=== PATIENT | male | born 1965 | race Hispanic/Latino ===

== ENCOUNTER 2020-07-18 14:23 | Inpatient (IN) | payer SELFPAY ==
--- NOTE | 2020-07-18 15:43 | Event Note ---
ED Screening Note ED Screening Note: pt presents for n/v that began 5 days ago he states he also has cough, chest pain described as a burning, SOB he states he has noticed swelling in his BLE he denies any fever, diarrhea, sore throat pmhx HTN and ME with stent placement allergy clindamycin, doxycycline, penicillin non smoker no sick contacts, no recent travel, no recent surgery +heart murmur, denies hx of murmur +pitting edema BLE This initial assessment/diagnostic orders/clinical plan/treatment(s) is/are subject to change based on patients health status, clinical progression and re- assessment by fellow clinical providers in the ED. Further treatment and workup at subsequent clinical providers discretion. Patient/guardian urged not to elope from the ED as their condition may be serious if not clinically assessed and managed. Initial orders include: labs, EKG, CXR
[2020-07-18 16:28] LABS: Basophils # (Auto) 0.1 K/mm3 (0.0-0.1); Basophils % (Auto) 1.1 % (0.0-1.8); Eosinophils # (Auto) 0.2 K/mm3 (0.0-0.4); Eosinophils % (Auto) 2.9 % (0.0-4.3); Lymphocytes # (Auto) 0.8 K/mm3 (1.2-5.4); Lymphocytes % (Auto) 14.8 % (13.4-35.0); Mean Corpuscular HGB Conc 29 % (32-34); Mean Corpuscular Volume 77 fl (84-94); Monocytes # (Auto) 0.6 K/mm3 (0.0-0.8); Monocytes % (Auto) 11.3 % (0.0-7.3); Red Blood Count 3.13 M/mm3 (3.65-5.03)
[2020-07-18 16:37] LABS: Hematocrit 24.1 % (35.5-45.6); Hemoglobin 6.9 gm/dl (11.8-15.2); Platelet Count 87 K/mm3 (140-440); Red Cell Distribution Width 22.9 % (13.2-15.2)
--- NOTE | 2020-07-18 16:40 | XRay Report ---
CHEST 2 VIEWS INDICATION / CLINICAL INFORMATION: Chest Pain. COMPARISON: None available. FINDINGS: SUPPORT DEVICES: None. HEART / MEDIASTINUM: No significant abnormality. LUNGS / PLEURA: No significant pulmonary or pleural abnormality. No pneumothorax. ADDITIONAL FINDINGS: No significant additional findings. IMPRESSION: No acute cardiopulmonary abnormality. Signer Name: Jim Pretty MD Signed: 07/18/2020 4:34 PM Workstation Name: [id number]
[2020-07-18 16:52] LABS: Alanine Aminotransferase 18 units/L (7-56); BUN/Creatinine Ratio 10; Blood Urea Nitrogen 9 mg/dL (9-20); Calcium 8.3 mg/dL (8.4-10.2); Hemolysis Index 5
[2020-07-18] MEDS ORDERED: SODIUM CHLORIDE 0.9% 500 ML 500 ML IV ONE (21:52)
[2020-07-18] MEDS ORDERED: ONDANSETRON 4 MG/2 ML INJ IV ONE (21:53)
[2020-07-18] MEDS ORDERED: PANTOPRAZOLE 40 MG INJ IV ONE (21:55)
--- NOTE | 2020-07-18 21:56 | Emergency Department Report ---
HPI - General Chief Complaint: Nausea/Vomiting/Diarrhea Time Seen by Provider: 07/18/20 15:40 - HPI HPI: This is a 55-year-old male presents to the emergency department with complaint of a 4 to 5-day history of a dry cough, midsternal burning in the chest, nausea with vomiting, and intermittent shortness of breath. The burning sensation and shortness of breath worsen with exertion. No known alleviating factors. The patient admits to seeing some blood-tinged emesis at times with his nausea and vomiting. He denies any fever, lower extremity swelling, back pain, headache. He has tried Pepto-Bismol and Pepcid for his symptoms prior to presentation. He denies any tobacco or illicit drug use. He has a past medical history of hypertension, high cholesterol, coronary artery disease with [address] 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 No recent travel or sick contacts at home. ED Past Medical Hx - Past Medical History Previous Medical History?: Yes Hx Hypertension: Yes Hx Heart Attack/AMI: Yes Hx Diabetes: Yes ED Review of Systems ROS: Stated complaint: NAUSEA/VOMITING/CHEST BURNING Other details as noted in HPI Comment: All other systems reviewed and negative Constitutional: denies: chills, fever Eyes: denies: eye pain, vision change ENT: denies: ear pain, throat pain Respiratory: cough, SOB with exertion Cardiovascular: chest pain (Burning sensation). denies: edema Gastrointestinal: abdominal pain, nausea, vomiting, hematemesis Genitourinary: denies: dysuria, discharge Musculoskeletal: denies: back pain, arthralgia Skin: denies: rash, lesions Neurological: denies: headache, weakness Physical Exam - Physical Exam Vital Signs: Vital Signs 07/18/20 14:47 Temperature 98.1 F Pulse Rate 113 H Respiratory 18 Rate Blood Pressure 113/65 [Right] O2 Sat by Pulse 98 Oximetry Physical Exam: GENERAL: The patient is well-developed well-nourished. HENT: Normocephalic. Atraumatic. Patient has moist mucous membranes. EYES: Extraocular motions are intact. Pale conjunctiva. NECK: Supple. Trachea is midline. CHEST/LUNGS: Clear to auscultation. There is tachypnea but no accessory muscle use. HEART/CARDIOVASCULAR: Regular. There is mild tachycardia. There is no murmur. ABDOMEN: Abdomen is soft. There is epigastric and right upper quadrant abdominal tenderness to palpation. No guarding. Patient has normal bowel sounds. There is no abdominal distention. SKIN: Skin is warm and dry. NEURO: The patient is awake, alert, and oriented. The patient is cooperative. The patient has no focal neurologic deficits. Normal speech. MUSCULOSKELETAL: There is no tenderness or deformity. There is no limitation range of motion. ED Course Vital Signs 07/18/20 14:47 Temperature 98.1 F Pulse Rate 113 H Respiratory 18 Rate Blood Pressure 113/65 [Right] O2 Sat by Pulse 98 Oximetry ED Medical Decision Making - Lab Data Result diagrams: 07/18/20 16:16 07/18/20 16:16 - EKG Data -: EKG Interpreted by Me EKG shows normal: sinus rhythm, axis, intervals, QRS complexes, ST-T waves Rate: tachycardia (104 bpm) - EKG Data When compared to previous EKG there are: previous EKG unavailable Interpretation: normal EKG (With mild tachycardia at 104 bpm) - Radiology Data Radiology results: report reviewed, image reviewed interpreted by me: Chest x-ray does not show any acute process. There are no pleural effusions, obvious pneumonia and there is no pneumothorax. No significant cardiomegaly. LIMITED RUQ ABDOMINAL ULTRASOUND INDICATION: Upper abd pain, elevated bilirubin. COMPARISON: No relevant prior imaging study available. FINDINGS: Pancreas: Not well-visualized due to overlying bowel gas.. Abdominal Aorta: No significant abnormality. IVC: No significant abnormality. Liver: The liver measures 11.6 cm in length. Nodular surface contour suggestive of cirrhosis. Portal vein not visualized.. Gallbladder: No significant abnormality. Bile ducts: No significant abnormality. Common bile duct measures 3.8 mm. Right kidney: No significant abnormality visualized.. Free fluid: Small volume. Additional Findings: Small right pleural effusion. IMPRESSION: 1. Nodular surface contour of the liver suggesting cirrhosis with small volume of ascites. 2. Portal vein was not visualized. 3. Small right pleural effusion.. - Medical Decision Making This patient presents to the emergency department with a 4 to 5-day history of some nausea with vomiting, intermittent shortness of breath, cough, and a midsternal burning chest discomfort. On examination the patient has pale conjunctiva and some reproducible epigastric and right upper quadrant abdominal tenderness to palpation. There is some tachypnea but no accessory muscle use. Patient's labs shows anemia with a hemoglobin of 6.9. Thrombocytopenia with a platelet count of 87. Patient has an INR of 1.67 without any history of anticoa gulation. There is an elevated bilirubin level. Chest x-ray does not show any acute process. Abdominal ultrasound shows liver cirrhosis, some mild ascites, and mild right basilar pleural effusion. The patient will receive a unit of packed red blood cells for transfusion. Patient will be admitted to the hospital for further evaluation and treatment was accepted for admission by the hospitalist, Dr. Lua. Critical Care Time: No Critical care attestation.: If time is entered above; I have spent that time in minutes in the direct care of this critically ill patient, excluding procedure time. ED Disposition Clinical Impression: Anemia requiring transfusions, Burning chest pain, Elevated INR, Hype rbilirubinemia Liver cirrhosis Qualifiers: Hepatic cirrhosis type: unspecified hepatic cirrhosis Ascites presence: with ascites Qualified Code(s): K74.60 - Unspecified cirrhosis of liver; R18.8 - Ot her ascites Disposition: OP ADMIT IP TO THIS HOSP Is pt being admited?: Yes Condition: Fair Time of Disposition: 00:09
[2020-07-18 23:21] LABS: INR 1.67 (0.87-1.13)
[2020-07-18 23:22] LABS: Partial Thromboplastin Time 38.3 Sec. (24.2-36.6)
--- NOTE | 2020-07-18 23:45 | Ultrasound Report ---
. LIMITED RUQ ABDOMINAL ULTRASOUND INDICATION: Upper abd pain, elevated bilirubin. COMPARISON: No relevant prior imaging study available. FINDINGS: Pancreas: Not well-visualized due to overlying bowel gas.. Abdominal Aorta: No significant abnormality. IVC: No significant abnormality. Liver: The liver measures 11.6 cm in length. Nodular surface contour suggestive of cirrhosis. Portal vein not visualized.. Gallbladder: No significant abnormality. Bile ducts: No significant abnormality. Common bile duct measures 3.8 mm. Right kidney: No significant abnormality visualized.. Free fluid: Small volume. Additional Findings: Small right pleural effusion. IMPRESSION: 1. Nodular surface contour of the liver suggesting cirrhosis with small volume of ascites. 2. Portal vein was not visualized. 3. Small right pleural effusion.. Signer Name: Usama Chance MD Signed: 07/18/2020 11:40 PM Workstation Name: [id number]
[2020-07-19] MEDS ORDERED: ACETAMINOPHEN 325 MG TAB PO PRN (01:33)
[2020-07-19] MEDS ORDERED: ONDANSETRON 4 MG/2 ML INJ IV PRN (01:33)
[2020-07-19] MEDS ORDERED: DEXTROSE 50% IN WATER (25GM) 50 ML SYRINGE IV PRN ×2 (01:33→01:39)
[2020-07-19] MEDS ORDERED: MORPHINE 2 MG/1 ML INJ IV PRN (01:39)
[2020-07-19] MEDS ORDERED: MAGNESIUM HYDROXIDE (MOM) ORAL LIQD UDC PO PRN (01:39)
--- NOTE | 2020-07-19 01:53 | History and Physical Report ---
History of Present Illness Date of examination: 07/19/20 Date of admission: 07/19/20 00:09 Chief complaint: Cough Shortness of breath History of present illness: Patient is a 55-year-old white male with known history of diabetes mellitus, hypertension, coronary artery disease with NM in the past presenting to the emergency room today complaining of cough, nausea and vomiting and intermittent shortness of breath which has been ongoing for the past 4 to 5 days. Shortness of breath is said to get worse on exertion. Denies any chest pain. Denies any fever or chills, no headache or dizziness. He has had some blood-tinged emesis earlier today. He denies any sick contacts and no recent travel, denies any contact with anyone with COVID-19. Patient had tried some Pepto-Bismol and Pepcid prior to reporting to the emergency room. Work-up in the emergency room today reveals hemoglobin of 6.9 and significant thrombocytopenia of 87, elevated bilirubin and elevated INR. Chest x-ray reveals no acute cardiopulmonary abnormality. Abdominal ultrasound reveals nodular surface contour of the liver suggesting cirrhosis with small volume of ascites. There is also small right pleural effusion. Past History Past Medical History: CAD, diabetes, hypertension, other (Liver cirrhosis) Past Surgical History: No surgical history Social history: no significant social history Family history: no significant family history Medications and Allergies Allergies Allergy/AdvReac Type Severity Reaction Status Date / Time clindamycin Allergy Unknown Verified 07/18/20 14:46 doxycycline [From Vibramycin] Allergy Unknown Verified 07/18/20 14:46 Penicillins Allergy Unknown Verified 07/18/20 14:46 Active Meds: Active Medications Acetaminophen (Acetaminophen 325 Mg Tab) 650 mg PO Q4H PRN PRN Reason: Pain MILD(1-3)/Fever >100.5/SAGASTUME Dextrose (Dextrose 50% In Water (25gm) 50 Ml Syringe) 50 ml IV Q30MIN PRN; Protocol PRN Reason: Hypoglycemia Insulin Human Lispro (Insulin Lispro 100 Unit/Ml) 0 unit SUB-Q ACHS KIRT; Protocol Magnesium Hydroxide (Magnesium Hydroxide (Mom) Oral Liqd Udc) 30 ml PO Q4H PRN PRN Reason: Constipation Morphine Sulfate (Morphine 2 Mg/1 Ml Inj) 2 mg IV Q4H PRN PRN Reason: Pain, Moderate (4-6) Ondansetron HCl (Ondansetron 4 Mg/2 Ml Inj) 4 mg IV Q8H PRN PRN Reason: Nausea And Vomiting Sodium Chloride (Sodium Chloride 0.9% 10 Ml Flush Syringe) 10 ml IV BID KIRT Sodium Chloride (Sodium Chloride 0.9% 10 Ml Flush Syringe) 10 ml IV PRN PRN PRN Reason: LINE FLUSH Review of Systems Constitutional: no fever, no chills Ears, nose, mouth and throat: no nasal congestion, no sore throat Cardiovascular: no chest pain, no palpitations Respiratory: cough, shortness of breath Gastrointestinal: nausea, vomiting, no abdominal pain Genitourinary Male: no dysuria, no hematuria, no nocturia Musculoskeletal: no neck pain, no low back pain Integumentary: no rash, no pruritis Neurological: no headaches, no confusion Psychiatric: no anxiety, no depression Exam - Constitutional Vitals: Temp Pulse Resp BP Pulse Ox 98.6 F 94 H 22 131/67 98 07/19/20 01:30 07/19/20 01:30 07/19/20 01:30 07/19/20 01:30 07/19/20 01:30 General appearance: Present: no acute distress, well-nourished - EENT Eyes: Present: PERRL, EOM intact. Absent: scleral icterus ENT: hearing intact, clear oral mucosa, dentition normal - Neck Neck: Present: supple, normal ROM - Respiratory Respiratory effort: normal Respiratory: bilateral: CTA - Cardiovascular Rhythm: regular Heart Sounds: Present: S1 & S2. Absent: gallop, systolic murmur, diastolic murmur, rub, click - Extremities Extremities: no ischemia, pulses intact, pulses symmetrical, normal temperature, normal color, Full ROM Extremity abnormal: edema (Trace bilateral ankle edema.) Peripheral Pulses: within normal limits - Abdominal General gastrointestinal: Present: soft, non-tender, non-distended, normal bowel sounds. Absent: mass - Integumentary Integumentary: Present: clear, warm, dry. Absent: rash - Musculoskeletal Musculoskeletal: strength equal bilaterally - Psychiatric Psychiatric: appropriate mood/affect, intact judgment & insight, memory intact, cooperative - Neurologic Neurologic: CNII-XII intact, no focal deficits, moves all extremities HEART Score - HEART Score Troponin: Troponin T < 0.010 ng/mL (0.00-0.029) 07/18/20 18:47 Results - Labs CBC & Chem 7: 07/18/20 16:16 07/18/20 16:16 Labs: Abnormal lab results 07/18/20 07/18/20 07/18/20 Range/Units 16:16 16:16 21:58 RBC 3.13 L (3.65-5.03) M/mm3 Hgb 6.9 L (11.8-15.2) gm/dl Hct 24.1 L (35.5-45.6) % MCV 77 L (84-94) fl MCH 22 L (28-32) pg MCHC 29 L (32-34) % RDW 22.9 H (13.2-15.2) % Plt Count 87 L (140-440) K/mm3 [place] % (Auto) 11.3 H (0.0-7.3) % Lymph # (Auto) 0.8 L (1.2-5.4) K/mm3 PT (12.2-14.9) Sec. INR (0.87-1.13) APTT (24.2-36.6) Sec. Chloride 107.9 H (98-107) mmol/L Carbon Dioxide 21 L (22-30) mmol/L Glucose 137 H (75-100) mg/dL Calcium 8.3 L (8.4-10.2) mg/dL Total Bilirubin 2.70 H (0.1-1.2) mg/dL Total Protein 5.6 L (6.3-8.2) g/dL Albumin 3.0 L (3.9-5) g/dL Crossmatch See Detail 07/18/20 Range/Units 23:05 RBC (3.65-5.03) M/mm3 Hgb (11.8-15.2) gm/dl Hct (35.5-45.6) % MCV (84-94) fl MCH (28-32) pg MCHC (32-34) % RDW (13.2-15.2) % Plt Count (140-440) K/mm3 [place] % (Auto) (0.0-7.3) % Lymph # (Auto) (1.2-5.4) K/mm3 PT 19.7 H (12.2-14.9) Sec. INR 1.67 H (0.87-1.13) APTT 38.3 H (24.2-36.6) Sec. Chloride (98-107) mmol/L Carbon Dioxide (22-30) mmol/L Glucose (75-100) mg/dL Calcium (8.4-10.2) mg/dL Total Bilirubin (0.1-1.2) mg/dL Total Protein (6.3-8.2) g/dL Albumin (3.9-5) g/dL Crossmatch Assessment and Plan - Patient Problems (1) Anemia requiring transfusions Current Visit: Yes Status: Acute Plan to address problem: Patient will be transfused with packed red blood cells. Will monitor CBC (2) Hyperbilirubinemia Current Visit: Yes Status: Acute Plan to address problem: Possibly secondary to the liver disease. We will monitor chemistry. (3) Liver cirrhosis Current Visit: Yes Status: Acute Qualifiers: Hepatic cirrhosis type: unspecified hepatic cirrhosis Ascites presence: with ascites Qualified Code(s): K74.60 - Unspecified cirrhosis of liver; R18.8 - Other ascites Plan to address problem: Consult placed to gastroenterology for evaluation. (4) Elevated INR Current Visit: Yes Status: Acute Plan to address problem: Possibly secondary to the liver disease.We will monitor PT/INR. (5) Full code status Current Visit: Yes Status: Acute Plan to address problem: Patient is full code.
[2020-07-19] MEDS: INSULIN LISPRO 100 UNIT/ML SUB-Q SCH ×4 (08:31→22:05)
[2020-07-19] MEDS: PANTOPRAZOLE 40 MG INJ IV SCH ×2 (09:07→22:07)
--- NOTE | 2020-07-19 10:37 | Progress Note ---
Assessment and Plan Assessment and plan: (1) Anemia requiring transfusions Current Visit: Yes Status: Acute Plan to address problem: Transfused 1 unit PRBC Trend hemoglobin Denies any blood in stool GI consulted for possible EGD (2) Hyperbilirubinemia Current Visit: Yes Status: Acute Plan to address problem: Possibly secondary to the liver disease. We will monitor chemistry. (3) Liver cirrhosis GI evaluation Trend AST/ALT bilirubin (4) Elevated INR Current Visit: Yes Status: Acute Plan to address problem: Possibly secondary to the liver disease.We will monitor PT/INR. (5) Full code status Current Visit: Yes Status: Acute Plan to address problem: Patient is full code. History Interval history: Patient seen examined at bedside this morning To see Has no complaints Received 1 unit PRBCs yesterday Repeat hemoglobin today. GI to see Hospitalist Physical - Physical exam Narrative exam: VITAL SIGNS: Reviewed. GENERAL: Awake HEAD: No signs of head trauma. EYES: Pupils are equal. Extraocular motions intact. MOUTH: Oropharynx is normal. NECK: No adenopathy, no JVD. CHEST: Chest with diminished breath sounds bilaterally. No wheezes, rales, or rhonchi. CARDIAC: normal S1 and S2, without murmurs, gallops, or rubs. ABDOMEN: Soft, non tender and non distended. No rebound or guarding, and no masses palpated. Bowel Sounds normal. MUSCULOSKELETAL: No edema NEUROLOGIC EXAM: Alert and oriented x3. No focal neurologic deficits SKIN: No obvious lesions - Constitutional Vitals: Temp Pulse Resp BP Pulse Ox 98.8 F 96 H 20 135/62 99 07/19/20 07:30 07/19/20 07:30 07/19/20 07:30 07/19/20 07:30 07/19/20 07:30 HEART Score - HEART Score Troponin: Troponin T < 0.010 ng/mL (0.00-0.029) 07/18/20 18:47 Results - Labs CBC & Chem 7: 07/18/20 16:16 07/18/20 16:16 Labs: Laboratory Last Values WBC 5.4 K/mm3 (4.5-11.0) 07/18/20 16:16 RBC 3.13 M/mm3 (3.65-5.03) L 07/18/20 16:16 Hgb 6.9 gm/dl (11.8-15.2) L 07/18/20 16:16 Hct 24.1 % (35.5-45.6) L 07/18/20 16:16 MCV 77 fl (84-94) L 07/18/20 16:16 MCH 22 pg (28-32) L 07/18/20 16:16 MCHC 29 % (32-34) L 07/18/20 16:16 RDW 22.9 % (13.2-15.2) H 07/18/20 16:16 Plt Count 87 K/mm3 (140-440) L 07/18/20 16:16 Lymph % (Auto) 14.8 % (13.4-35.0) 07/18/20 16:16 [place] % (Auto) 11.3 % (0.0-7.3) H 07/18/20 16:16 Eos % (Auto) 2.9 % (0.0-4.3) 07/18/20 16:16 Baso % (Auto) 1.1 % (0.0-1.8) 07/18/20 16:16 Lymph # (Auto) 0.8 K/mm3 (1.2-5.4) L 07/18/20 16:16 [place] # (Auto) 0.6 K/mm3 (0.0-0.8) 07/18/20 16:16 Eos # (Auto) 0.2 K/mm3 (0.0-0.4) 07/18/20 16:16 Baso # (Auto) 0.1 K/mm3 (0.0-0.1) 07/18/20 16:16 Seg Neutrophils % 69.9 % (40.0-70.0) 07/18/20 16:16 Seg Neutrophils # 3.8 K/mm3 (1.8-7.7) 07/18/20 16:16 PT 19.7 Sec. (12.2-14.9) H 07/18/20 23:05 INR 1.67 (0.87-1.13) H 07/18/20 23:05 APTT 38.3 Sec. (24.2-36.6) H 07/18/20 23:05 Sodium 139 mmol/L (137-145) 07/18/20 16:16 Potassium 4.0 mmol/L (3.6-5.0) 07/18/20 16:16 Chloride 107.9 mmol/L (98-107) H 07/18/20 16:16 Carbon Dioxide 21 mmol/L (22-30) L 07/18/20 16:16 Anion Gap 14 mmol/L 07/18/20 16:16 BUN 9 mg/dL (9-20) 07/18/20 16:16 Creatinine 0.9 mg/dL (0.8-1.3) 07/18/20 16:16 Estimated GFR > 60 ml/min 07/18/20 16:16 BUN/Creatinine Ratio 10 % 07/18/20 16:16 Glucose 137 mg/dL (75-100) H 07/18/20 16:16 POC Glucose 88 mg/dL (70-105) 07/19/20 07:18 Calcium 8.3 mg/dL (8.4-10.2) L 07/18/20 16:16 Total Bilirubin 2.70 mg/dL (0.1-1.2) H 07/18/20 16:16 AST 34 units/L (5-40) 07/18/20 16:16 ALT 18 units/L (7-56) 07/18/20 16:16 Alkaline Phosphatase 108 units/L (35-129) 07/18/20 16:16 Troponin T < 0.010 ng/mL (0.00-0.029) 07/18/20 18:47 NT-Pro-B Natriuret Pep 256.4 pg/mL (0-900) 07/18/20 16:16 Total Protein 5.6 g/dL (6.3-8.2) L 07/18/20 16:16 Albumin 3.0 g/dL (3.9-5) L 07/18/20 16:16 Albumin/Globulin Ratio 1.2 % 07/18/20 16:16 Lipase 32 units/L (13-60) 07/18/20 16:16 Blood Type O POSITIVE 07/18/20 21:58 Antibody Screen Negative 07/18/20 21:58 Crossmatch See Detail 07/18/20 21:58 Active Medications - Current Medications Current Medications: Generic Name Dose Route Start Last Admin Trade Name Freq PRN Reason Stop Dose Admin Acetaminophen 650 mg 07/19/20 01:33 Acetaminophen 325 Mg Tab PO Q4H PRN Pain MILD(1-3)/Fever >100.5/SAGASTUME Dextrose 50 ml 07/19/20 01:33 Dextrose 50% In Water (25gm) 50 Ml Syringe IV Q30MIN PRN Hypoglycemia Protocol Insulin Human Lispro 0 unit 07/19/20 07:30 07/19/20 08:31 Insulin Lispro 100 Unit/Ml SUB-Q Not Given ACHS KIRT Protocol Magnesium Hydroxide 30 ml 07/19/20 01:39 Magnesium Hydroxide (Mom) Oral Liqd Udc PO Q4H PRN Constipation Morphine Sulfate 2 mg 07/19/20 01:39 Morphine 2 Mg/1 Ml Inj IV Q4H PRN Pain, Moderate (4-6) Ondansetron HCl 4 mg 07/19/20 01:33 Ondansetron 4 Mg/2 Ml Inj IV Q8H PRN Nausea And Vomiting Pantoprazole Sodium 40 mg 07/19/20 10:00 Pantoprazole 40 Mg Inj IV BID KIRT Sodium Chloride 10 ml 07/19/20 10:00 Sodium Chloride 0.9% 10 Ml Flush Syringe IV BID KIRT Sodium Chloride 10 ml 07/19/20 01:33 Sodium Chloride 0.9% 10 Ml Flush Syringe IV PRN PRN LINE FLUSH
[2020-07-19] MEDS ORDERED: SODIUM CHLORIDE 0.9% 1000 ML 1,000 ML IV SCH (12:30)
[2020-07-19] MEDS ORDERED: WATER FOR IRRIG STERILE 1,000 ML BOTTLE ONE (12:59)
[2020-07-19] MEDS ORDERED: WATER FOR IRRIG STERILE 250 ML BOTTLE IR ONE (12:59)
--- NOTE | 2020-07-19 13:08 | Anesthesia Consultation ---
<LUIS MILLS - Last Filed: 07/19/20 13:03> Anesthesia Consult and Med Hx Date of service: 07/19/20 - Airway Anesthetic Teeth Evaluation: Crowns ROM Head & Neck: Adequate Mental/Hyoid Distance: Adequate Mallampati Class: Class II Intubation Access Assessment: Probably Good - Pulmonary Exam CTA: Yes - Pre-Operative Health Status ASA Pre-Surgery Classification: ASA3 Proposed Anesthetic Plan: MAC - Pulmonary Hx Smoking: No Hx Asthma: No SOB: Yes COPD: No Hx Pneumonia: No Hx Sleep Apnea: No - Cardiovascular System Hx Hypertension: Yes Hx Heart Attack/AMI: Yes (2010 07 stent placement) Hx Angina: No Hx Percutaneous Transluminal Coronary Angioplasty (PTCA): No Hx Pacemaker: No Hx Valvular Heart Disease: No Hx Heart Murmur: No Hx Peripheral Vascular Disease: No - Central Nervous System Hx Neuromuscular Disorder: No Hx Seizures: No CVA: No Hx Psychiatric Problems: No - Gastrointestinal Hx Ulcer: No Hx Gastroesophageal Reflux Disease: No - Endocrine Hx Renal Disease: Yes (Hx. of renal calculi) Hx Cirrhosis: Yes (Liver Cirrhosis) Hx Liver Disease: Yes Hx Insulin Dependent Diabetes: No Hx Non-Insulin Dependent Diabetes: No Hx Thyroid Disease: No - Hematic Hx Anemia: Yes - Other Systems Hx Alcohol Use: No Hx Substance Use: No Hx Cancer: No Hx Obesity: Yes (BMI 34.9kg) - Additional Comments Anesthesia Medical History Comments: Patient denied previous anesthesia complications. <LEANNE JI - Last Filed: 07/19/20 14:19> Anesthesia Consult and Med Hx - Pre-Operative Health Status ASA Pre-Surgery Classification: ASA4 - Additional Comments Anesthesia Medical History Comments: PMh CAD s/p PA and stent placement, HTN, DM, cirrhosis complicated by anemia, thrombocytopenia, coagulopathy, and small volume ascites.
--- NOTE | 2020-07-19 13:11 | Anesthesia Day of Surgery ---
Anesthesia Day of Surgery - Day of Surgery Patient Examined: Yes Patient H&P Reviewed: Yes Patient is NPO: Yes Beta Blockers: No Cardiac Clearance: No Pulmonary Clearance: No Magan's Test: N/A
[2020-07-19] MEDS ORDERED: propofoL 200 MG/20 ML VIAL IV ONE (13:35)
[2020-07-19] MEDS ORDERED: ONDANSETRON 4 MG/2 ML INJ ONE (13:35)
[2020-07-19] MEDS ORDERED: LIDOCAINE MPF (2%) 20 MG/1 ML VIAL 5 ML ONE (13:35)
[2020-07-19] MEDS ORDERED: fentaNYL 100 MCG/2 ML INJ ONE (13:35)
--- NOTE | 2020-07-19 14:17 | Post Operative Note ---
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
--- NOTE | 2020-07-19 14:20 | Post Anesthesia Evaluation ---
- Post Anesthesia Evaluation Patient Participated: Yes Airway Patent: Yes Stable Respiratory Function: Yes Nausea/Vomiting: No Temp > 96.8F: Yes Pain Manageable: Yes Adequeate Hydration: Yes Anesthesia Complications: No
--- NOTE | 2020-07-19 14:36 | Operative Report ---
INDICATIONS: 1. Anemia. 2. Gastrointestinal bleed. MEDICATIONS: Propofol per PROCUREMENT AGENT. COMPLICATIONS: None. DESCRIPTION OF PROCEDURE: The patient brought to procedure suite. The patient had the procedure discussed with him at length. All risks, complications, and benefits discussed after which the patient signed for the procedure performed. The patient was placed in left lateral decubitus position. Mouth block was placed in the patient's oral cavity. After adequate sedation medication as above, endoscope placed in mouth and brought to level of the second portion of duodenum. Retroflexion view performed. The patient's vital signs remained stable throughout the procedure. FINDINGS: There were 2 columns of grade I-II varices without bleeding stigmata noted mid to distal esophagus. Given no stigmata, no interventions were performed. There was a small hiatal hernia at GE junction at 40 cm from the gums. Esophagus otherwise appeared to be normal. There is moderate antral gastritis, biopsies performed. The stomach otherwise appeared to be normal. Duodenum appeared to be normal. Retroflexion view performed in the stomach showed no other pathology other than noted above. The patient tolerated the procedure well. No complications during the procedure. IMPRESSION: 1. 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 2. Hiatal hernia. 3. [id number]-[id number] gastritis, but formed. 4. Otherwise, normal EGD. RECOMMENDATIONS: 1. Follow up biopsy results. 2. If H. pylori positive, we will treat. 3. We will start low dose beta arti. 4. Follow hematocrit and transfuse as needed. 5. Await acute hepatitis panel. 6. If stable in a.m., we can consider discharge, will follow up as an outpatient. 7. We will follow. JOB# [id number] CAB/NTS
[2020-07-19 17:01] LABS: Hematocrit 22.2 % (35.5-45.6)
--- NOTE | 2020-07-19 17:15 | Consultation ---
REFERRING PHYSICIAN: Spencer Arthur MD INDICATION: 1. Liver disease. 2. Anemia. 3. Gastrointestinal bleed. HISTORY OF PRESENT ILLNESS: The patient is a 55-year-old white male with history of diabetes, hypertension, coronary artery disease, status post CO in the past. The patient presented with cough, with nausea, vomiting, and intermittent shortness of breath for the last 4-5 days. The patient also had noted some blood-tinged hematemesis earlier today. Denies any melena. The patient does report he has been taking some Pepto-Bismol and Pepcid ____. The patient denies any NSAIDs. The patient subsequently came to Emergency Room, where was noted to be anemic with a hemoglobin of 6.9 and labs concerning for cirrhosis. He is noted to have an increased bilirubin, elevated INR, and a platelet count of 87. The patient was subsequently admitted and GI consulted. He denies any other specific complaints. PAST MEDICAL HISTORY: 1. Diabetes. 2. Hypertension. 3. Coronary artery disease. MEDICATIONS: Reviewed and updated in chart. ALLERGIES: CLINDAMYCIN, DOXYCYCLINE AND PENICILLIN. SOCIAL HISTORY: Denies alcohol or tobacco. FAMILY HISTORY: Negative for colon cancer. REVIEW OF SYSTEMS: GENERAL: Reports some weakness. HEENT: No visual complaints or tinnitus. PULMONARY: No short of breath. No cough. No chest pain. GASTROINTESTINAL: Reports some hematemesis. All points of 13-point review of systems otherwise negative. PHYSICAL EXAMINATION: VITAL SIGNS: Temperature of 98.8, pulse 96, respirations 20, blood pressure 135/60. GENERAL: Fairly nourished male in no acute distress. HEENT: Pupils equal, round and reactive. PULMONARY: Rhonchi. CARDIOVASCULAR: Regular rate and rhythm. Normal S1, S2. ABDOMEN: Palpable soft. SKIN: No obvious rashes. LABORATORY DATA: Pertinent for white count of 5.4, hemoglobin and hematocrit 6.9 and 24.1, platelet count of 87. INR of 1.67 with a PT of 19.7. Chem-7 within normal limits. LFTs within normal limits except for total bilirubin of 2.7. Lipase is normal. Abdominal ultrasound performed on 07/18/2020 showed nodular contour suggestive of cirrhosis with a small level of ascites. ASSESSMENT: A 55-year-old male presents with some general weakness, noted to be anemic with a low platelet count and increased bilirubin. The patient also had an ultrasound showing liver contour suggestive of cirrhosis. There is no history of alcohol reportedly. Management is noted below. PLAN: 1. We will review ultrasound. 2. We will get basic liver workup including hepatitis serologies. 3. Follow hematocrit and transfuse as needed. 4. Plan EGD. 5. Further recommendations based on progress and results of endoscopy. [facility]# [id number] CAB/NTS
[2020-07-19] MEDS ORDERED: guaiFENesin 200 MG TAB PO PRN (21:49)
[2020-07-19] MEDS: PROPRANOLOL 10 MG TAB PO SCH (22:06)
[2020-07-19] MEDS: guaiFENesin 100 MG/5 ML ORAL LIQD PO PRN (22:08)
[2020-07-20] MEDS: guaiFENesin 100 MG/5 ML ORAL LIQD PO PRN ×2 (05:24→22:22)
[2020-07-20 06:01] LABS: Basophils # (Auto) 0.1 K/mm3 (0.0-0.1); Basophils % (Auto) 1.4 % (0.0-1.8); Eosinophils # (Auto) 0.2 K/mm3 (0.0-0.4); Eosinophils % (Auto) 3.3 % (0.0-4.3); Hemoglobin 7.3 gm/dl (11.8-15.2); Lymphocytes % (Auto) 15.4 % (13.4-35.0); Mean Corpuscular HGB Conc 30 % (32-34); Mean Corpuscular Volume 77 fl (84-94); Monocytes # (Auto) 0.9 K/mm3 (0.0-0.8); Monocytes % (Auto) 13.7 % (0.0-7.3); Platelet Count 127 K/mm3 (140-440); Red Blood Count 3.11 M/mm3 (3.65-5.03)
[2020-07-20 06:11] LABS: INR 1.77 (0.87-1.13)
[2020-07-20 06:18] LABS: Alanine Aminotransferase 14 units/L (7-56); Albumin 2.9 g/dL (3.9-5); BUN/Creatinine Ratio 12; Blood Urea Nitrogen 11 mg/dL (9-20); Calcium 7.7 mg/dL (8.4-10.2); Hemolysis Index 12
[2020-07-20] MEDS: PANTOPRAZOLE 40 MG TAB PO SCH ×2 (09:19→18:09)
[2020-07-20] MEDS: PROPRANOLOL 10 MG TAB PO SCH ×2 (09:19→22:22)
[2020-07-20] MEDS: INSULIN LISPRO 100 UNIT/ML SUB-Q SCH ×4 (09:21→22:27)
--- NOTE | 2020-07-20 12:34 | Progress Note ---
Assessment and Plan Assessment and plan: (1) Anemia requiring transfusions Current Visit: Yes Status: Acute Plan to address problem: Transfused 1 unit PRBC on 07/19. Trend hemoglobin for now Denies any blood in stool EGD - +varices but showed no bleeding. (2) Hyperbilirubinemia Current Visit: Yes Status: Acute Plan to address problem: Possibly secondary to the liver disease. Bilirubin trending up GI following (3) Liver cirrhosis Monitor GI bleed (4) Elevated INR Current Visit: Yes Status: Acute Plan to address problem: Secondary to liver disease. INR 1.77 (5) Full code status Current Visit: Yes Status: Acute Plan to address problem: Patient is full code. (6) Disposition Current Visit: Yes Status: Acute Plan to address problem: Home when cleared by GI History Interval history: 07/20. Patient seen examined at bedside this morning. Hb stable 7.3. EGD showed gastritis. On PPI. GI recs appreciated. Hospitalist Physical - Physical exam Narrative exam: VITAL SIGNS: Reviewed. GENERAL: Awake HEAD: No signs of head trauma. EYES: Pupils are equal. Extraocular motions intact. MOUTH: Oropharynx is normal. NECK: No adenopathy, no JVD. CHEST: Chest with diminished breath sounds bilaterally. No wheezes, rales, or rhonchi. CARDIAC: normal S1 and S2, without murmurs, gallops, or rubs. ABDOMEN: Soft, non tender and non distended. No rebound or guarding, and no masses palpated. Bowel Sounds normal. MUSCULOSKELETAL: No edema NEUROLOGIC EXAM: Alert and oriented x3. No focal neurologic deficits SKIN: No obvious lesions - Constitutional Vitals: Temp Pulse Resp BP Pulse Ox 98.1 F 78 18 114/61 94 07/20/20 07:48 07/20/20 07:48 07/20/20 07:48 07/20/20 07:48 07/20/20 07:48 HEART Score - HEART Score Troponin: Troponin T < 0.010 ng/mL (0.00-0.029) 07/18/20 18:47 Results - Labs CBC & Chem 7: 07/21/20 05:31 07/21/20 05:31 Labs: Laboratory Last Values WBC 6.2 K/mm3 (4.5-11.0) 07/20/20 05:35 RBC 3.11 M/mm3 (3.65-5.03) L 07/20/20 05:35 Hgb 7.3 gm/dl (11.8-15.2) L 07/20/20 05:35 Hct 24.0 % (35.5-45.6) L 07/20/20 05:35 MCV 77 fl (84-94) L 07/20/20 05:35 MCH 23 pg (28-32) L 07/20/20 05:35 MCHC 30 % (32-34) L 07/20/20 05:35 RDW 23.0 % (13.2-15.2) H 07/20/20 05:35 Plt Count 127 K/mm3 (140-440) L 07/20/20 05:35 Lymph % (Auto) 15.4 % (13.4-35.0) 07/20/20 05:35 [place] % (Auto) 13.7 % (0.0-7.3) H 07/20/20 05:35 Eos % (Auto) 3.3 % (0.0-4.3) 07/20/20 05:35 Baso % (Auto) 1.4 % (0.0-1.8) 07/20/20 05:35 Lymph # (Auto) 1.0 K/mm3 (1.2-5.4) L 07/20/20 05:35 [place] # (Auto) 0.9 K/mm3 (0.0-0.8) H 07/20/20 05:35 Eos # (Auto) 0.2 K/mm3 (0.0-0.4) 07/20/20 05:35 Baso # (Auto) 0.1 K/mm3 (0.0-0.1) 07/20/20 05:35 Seg Neutrophils % 66.2 % (40.0-70.0) 07/20/20 05:35 Seg Neutrophils # 4.1 K/mm3 (1.8-7.7) 07/20/20 05:35 PT 20.7 Sec. (12.2-14.9) H 07/20/20 05:35 INR 1.77 (0.87-1.13) H 07/20/20 05:35 APTT 38.3 Sec. (24.2-36.6) H 07/18/20 23:05 Sodium 135 mmol/L (137-145) L 07/20/20 05:35 Potassium 4.0 mmol/L (3.6-5.0) 07/20/20 05:35 Chloride 105.7 mmol/L (98-107) 07/20/20 05:35 Carbon Dioxide 24 mmol/L (22-30) 07/20/20 05:35 Anion Gap 9 mmol/L 07/20/20 05:35 BUN 11 mg/dL (9-20) 07/20/20 05:35 Creatinine 0.9 mg/dL (0.8-1.3) 07/20/20 05:35 Estimated GFR > 60 ml/min 07/20/20 05:35 BUN/Creatinine Ratio 12 % 07/20/20 05:35 Glucose 119 mg/dL (75-100) H 07/20/20 05:35 POC Glucose 107 mg/dL (70-105) H 07/20/20 11:31 Calcium 7.7 mg/dL (8.4-10.2) L 07/20/20 05:35 Total Bilirubin 3.80 mg/dL (0.1-1.2) H 07/20/20 05:35 AST 37 units/L (5-40) 07/20/20 05:35 ALT 14 units/L (7-56) 07/20/20 05:35 Alkaline Phosphatase 84 units/L (35-129) 07/20/20 05:35 Troponin T < 0.010 ng/mL (0.00-0.029) 07/18/20 18:47 NT-Pro-B Natriuret Pep 256.4 pg/mL (0-900) 07/18/20 16:16 Total Protein 5.5 g/dL (6.3-8.2) L 07/20/20 05:35 Albumin 2.9 g/dL (3.9-5) L 07/20/20 05:35 Albumin/Globulin Ratio 1.1 % 07/20/20 05:35 Lipase 32 units/L (13-60) 07/18/20 16:16 Blood Type O POSITIVE 07/18/20 21:58 Antibody Screen Negative 07/18/20 21:58 Crossmatch See Detail 07/18/20 21:58 Vera/IV: Voiding Method Toilet Active Medications - Current Medications Current Medications: Generic Name Dose Route Start Last Admin Trade Name Freq PRN Reason Stop Dose Admin Acetaminophen 650 mg 07/19/20 01:33 Acetaminophen 325 Mg Tab PO Q4H PRN Pain MILD(1-3)/Fever >100.5/SAGASTUME Dextrose 50 ml 07/19/20 01:33 Dextrose 50% In Water (25gm) 50 Ml Syringe IV Q30MIN PRN Hypoglycemia Protocol Guaifenesin 200 mg 07/19/20 21:51 07/20/20 05:24 Guaifenesin 100 Mg/5 Ml Oral Liqd PO 200 mg Q6H PRN Administration Cough Insulin Human Lispro 0 unit 07/19/20 07:30 07/20/20 12:15 Insulin Lispro 100 Unit/Ml SUB-Q Not Given ACHS KIRT Protocol Magnesium Hydroxide 30 ml 07/19/20 01:39 Magnesium Hydroxide (Mom) Oral Liqd Udc PO Q4H PRN Constipation Morphine Sulfate 2 mg 07/19/20 01:39 Morphine 2 Mg/1 Ml Inj IV Q4H PRN Pain, Moderate (4-6) Ondansetron HCl 4 mg 07/19/20 01:33 Ondansetron 4 Mg/2 Ml Inj IV Q8H PRN Nausea And Vomiting Pantoprazole Sodium 40 mg 07/20/20 07:30 07/20/20 09:19 Pantoprazole 40 Mg Tab PO 40 mg BIDAC KIRT Administration Propranolol HCl 20 mg 07/19/20 22:00 07/20/20 09:19 Propranolol 10 Mg Tab PO 20 mg Q12HR KIRT Administration Sodium Chloride 10 ml 07/19/20 10:00 07/20/20 09:20 Sodium Chloride 0.9% 10 Ml Flush Syringe IV 10 ml BID KIRT Administration Sodium Chloride 10 ml 07/19/20 01:33 Sodium Chloride 0.9% 10 Ml Flush Syringe IV PRN PRN LINE FLUSH Nutrition/Malnutrition Assess - Dietary Evaluation Nutrition/Malnutrition Findings: Nutrition Notes Start: 07/19/20 11:21 Freq: Status: Active Protocol: Document 07/19/20 11:21 AL (Rec: 07/19/20 11:45 AL [id number]) Co-Sign 07/19/20 11:21 LP Nutrition Notes Need for Assessment generated from: MD Order,Education Initial or Follow up Assessment Current Diagnosis Diabetes,Hypertension Other Pertinent Diagnosis Anemia, Liver Cirrhosis, Hyperbilirubinemia Current Diet NPO Labs/Tests Total Bilirubin 2.7 Pertinent Medications Reviewed Height 5 ft 11 in Weight 113.389 kg [place] Body Weight (kg) 78.18 BMI 34.8 Intake Prior to Admission Poor Weight Status Obese Subjective/Other Information MD consult for diet education. Pt reports normally eating 2 meals and one snack/ day. However, since Friday 07/14, appetite decreased to consuming <50% of meals. During this time, pt relied on crackers and cookies mainly. Pt reports eating out recreationally and drinks a lot of tea. Diet education provided on general healthy diet tips, hyperbilirubinemia, and importance of drinking water. Last meal reported was on Friday night. Percent of energy/protein needs met: 0/0 Burn Absent Trauma Absent GI Symptoms Vomiting Current % PO Negligible Minimum of two criteria No Energy Intake (severe) < or equal to 50% Estimated Energy Requirement > or equal to 5 days #2 Nutrition Diagnosis Food and nutrition-related knowledge deficit Etiology liver cirrhosis, hyperbilirubinemia, HTN, DM As Evidenced by Signs and Symptoms pt unaware how nutrition related to current disease state. #1 Nutrition Diagnosis Inadequate energy intake Etiology appetite loss As Evidenced by Signs and Symptoms Pt's last meal was on Friday and has consumed <50% of energy needs since Friday 07/14 . Is patient on ventilator? No Is Patient Ambulatory and/or Out of Bed Yes REE-([facility]-ambulatory/OOB) [ 2575.326 [id number]] Kcal/Kg value to use for calculation 18 Approximate Energy Requirements Using 2041 kcal/Kg Calculation Used for Recommendations Kcal/kg Additional Notes Protein: 96-115 g (1-1.2 AdBW 96 kg) Fluid: 1 ml/kcal Nutrition Intervention Change Diet Order: Advance to Cardiac diet when medically feasible Teaching Recipient Patient Learning Readiness Good Teaching Methods Discussion,Handout Education Handouts Provided General Healthful Nutrition Therapy Barriers to Learning No Barriers RD phone number provided Yes Patient aware of follow up options Yes Goal #1 Advance diet when medically feasible Anticipated Discharge Needs: Cardiac/Consistent Carb diet Follow-Up By: 07/21/20 Additional Comments FU for diet advancement, appetite, and intakes
--- NOTE | 2020-07-20 13:54 | Post Anesthesia Evaluation ---
- Post Anesthesia Evaluation Patient Participated: Yes Airway Patent: Yes Stable Respiratory Function: Yes Nausea/Vomiting: No Temp > 96.8F: Yes Pain Manageable: Yes Adequeate Hydration: Yes Anesthesia Complications: No Block Receding Appropriately: Not Applicable Patient on Ventilator: No
--- NOTE | 2020-07-20 16:34 | Gastroenterology Progress Note ---
Assessment and Plan 1. GI: pt w/ anemia with Grade I-II varices on egd - stable overnight without complaints - follow h/, transfuse as needed - PPI qd - diet as tolerated - ok to dc in am from GI standpoint if stable Subjective Date of service: 07/20/20 Interval history: - no GI complaints overnight. Wants to go home Objective - Constitutional Vitals: Temp Pulse Resp BP Pulse Ox 98.5 F 70 20 130/68 96 07/20/20 13:00 07/20/20 13:00 07/20/20 13:00 07/20/20 13:00 07/20/20 13:00 General appearance: no acute distress - EENT Eyes: PERRL - Respiratory Respiratory: bilateral: CTA - Cardiovascular Rhythm: regular Heart Sounds: Present: S1 & S2 - Gastrointestinal General gastrointestinal: Present: soft, non-tender, non-distended - Labs CBC & Chem 7: 07/20/20 05:35 07/20/20 05:35 Labs: Laboratory Results - last 24 hr 07/19/20 07/19/20 07/19/20 15:58 16:37 21:03 WBC RBC Hgb 7.0 L Hct 22.2 L MCV MCH MCHC RDW Plt Count Lymph % (Auto) [place] % (Auto) Eos % (Auto) Baso % (Auto) Lymph # (Auto) [place] # (Auto) Eos # (Auto) Baso # (Auto) Seg Neutrophils % Seg Neutrophils # PT INR Sodium Potassium Chloride Carbon Dioxide Anion Gap BUN Creatinine Estimated GFR BUN/Creatinine Ratio Glucose POC Glucose 81 114 H Calcium Total Bilirubin AST ALT Alkaline Phosphatase Total Protein Albumin Albumin/Globulin Ratio 07/20/20 07/20/20 07/20/20 05:35 05:35 05:35 WBC 6.2 RBC 3.11 L Hgb 7.3 L Hct 24.0 L MCV 77 L MCH 23 L MCHC 30 L RDW 23.0 H Plt Count 127 L Lymph % (Auto) 15.4 [place] % (Auto) 13.7 H Eos % (Auto) 3.3 Baso % (Auto) 1.4 Lymph # (Auto) 1.0 L [place] # (Auto) 0.9 H Eos # (Auto) 0.2 Baso # (Auto) 0.1 Seg Neutrophils % 66.2 Seg Neutrophils # 4.1 PT 20.7 H INR 1.77 H Sodium 135 L Potassium 4.0 Chloride 105.7 Carbon Dioxide 24 Anion Gap 9 BUN 11 Creatinine 0.9 Estimated GFR > 60 BUN/Creatinine Ratio 12 Glucose 119 H POC Glucose Calcium 7.7 L Total Bilirubin 3.80 H AST 37 ALT 14 Alkaline Phosphatase 84 Total Protein 5.5 L Albumin 2.9 L Albumin/Globulin Ratio 1.1 07/20/20 07/20/20 07:48 11:31 WBC RBC Hgb Hct MCV MCH MCHC RDW Plt Count Lymph % (Auto) [place] % (Auto) Eos % (Auto) Baso % (Auto) Lymph # (Auto) [place] # (Auto) Eos # (Auto) Baso # (Auto) Seg Neutrophils % Seg Neutrophils # PT INR Sodium Potassium Chloride Carbon Dioxide Anion Gap BUN Creatinine Estimated GFR BUN/Creatinine Ratio Glucose POC Glucose 103 107 H Calcium Total Bilirubin AST ALT Alkaline Phosphatase Total Protein Albumin Albumin/Globulin Ratio
[2020-07-21 06:02] LABS: Basophils # (Auto) 0.1 K/mm3 (0.0-0.1); Basophils % (Auto) 1.4 % (0.0-1.8); Eosinophils # (Auto) 0.3 K/mm3 (0.0-0.4); Hematocrit 23.1 % (35.5-45.6); Hemoglobin 7.1 gm/dl (11.8-15.2); Lymphocytes # (Auto) 0.9 K/mm3 (1.2-5.4); Lymphocytes % (Auto) 15.7 % (13.4-35.0); Mean Corpuscular HGB Conc 31 % (32-34); Mean Corpuscular Volume 74 fl (84-94); Monocytes # (Auto) 0.7 K/mm3 (0.0-0.8); Monocytes % (Auto) 13.4 % (0.0-7.3); Platelet Count 137 K/mm3 (140-440); Red Blood Count 3.11 M/mm3 (3.65-5.03)
[2020-07-21 06:04] LABS: Red Cell Distribution Width 23.5 % (13.2-15.2)
[2020-07-21 06:11] LABS: Alanine Aminotransferase 17 units/L (7-56); Albumin 2.7 g/dL (3.9-5); BUN/Creatinine Ratio 13; Blood Urea Nitrogen 12 mg/dL (9-20); Calcium 7.5 mg/dL (8.4-10.2); Hemolysis Index 0
[2020-07-21] MEDS: INSULIN LISPRO 100 UNIT/ML SUB-Q SCH ×3 (07:30→11:39)
[2020-07-21] MEDS: PANTOPRAZOLE 40 MG TAB PO SCH (07:30)
[2020-07-21] MEDS ORDERED: SODIUM CHLORIDE 0.9% 500 ML 500 ML IV NR (08:22)
[2020-07-21] MEDS: PROPRANOLOL 10 MG TAB PO SCH (09:08)
--- NOTE | 2020-07-21 09:09 | Discharge Summary ---
Providers - Providers Date of Admission: 07/20/20 15:20 Date of discharge: 07/21/20 Attending physician: JUDIE LIANG 07/19/20 01:34 Consult to Dietitian/Nutrition [CONS] Routine Physician Instructions: Reason For Exam: Reason for Consult: Diet education 07/19/20 01:44 Consult to Physician [CONS] Routine Comment: Consulting Provider: AMISHA TSAI Physician Instructions: Reason For Exam: Elevated bilirubin,h/lucia cirrhosis,?hematemesis Primary care physician: CLINICAL PSYCHOLOGIST Hospitalization Reason for admission: GI bleed, varices Condition: Fair Hospital course: Patient is a 55-year-old white male with known history of diabetes mellitus, hypertension, coronary artery disease with MT in the past who presented to the emergency room complaining of cough, nausea and vomiting and intermittent shortness of breath which has been ongoing for the 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 Chest x-ray reveals no acute cardiopulmonary abnormality. Abdominal ultrasound reveals nodular surface contour of the liver suggesting cirrhosis with small volume of ascites. The patient was admitted with diagnosis of GI bleed, liver cirrhosis, coagulopathy/elevated INR, hyperbilirubinemia and anemia requiring blood transfusion. The patient was seen by GI in consultation and underwent EGD which revealed Grade I-II varices w/o bleeding stigmata, no banding performed. Also gastritis with biopsies pending. GI felt that the GI bleed was secondary to the above findings and diet was advanced which was tolerated. Recommendations were for PPI daily. Patient received PRBCs and H&H stable. Dedicated discharge time 35 minutes Disposition: - TO HOME OR SELFCARE Time spent for discharge: 35 - Discharge Diagnoses (1) Varices of esophagus determined by endoscopy Status: Acute (2) GI bleed Status: Acute (3) Anemia requiring transfusions Status: Acute (4) Elevated INR Status: Acute (5) Hyperbilirubinemia Status: Acute (6) Liver cirrhosis Status: Acute Qualifiers: Hepatic cirrhosis type: unspecified hepatic cirrhosis Ascites presence: with ascites Qualified Code(s): K74.60 - Unspecified cirrhosis of liver; R18.8 - Other ascites Core Measure Documentation - Palliative Care Palliative Care/ Comfort Measures: Not Applicable - Core Measures Any of the following diagnoses?: none Exam - Constitutional Vitals: Temp Pulse Resp BP Pulse Ox 98.1 F 78 16 109/51 95 07/21/20 07:56 07/21/20 07:56 07/21/20 07:56 07/21/20 07:56 07/21/20 07:56 General appearance: Present: no acute distress, well-nourished - EENT Eyes: Present: PERRL ENT: hearing intact, clear oral mucosa - Neck Neck: Present: supple, normal ROM - Respiratory Respiratory effort: normal Respiratory: bilateral: CTA - Cardiovascular Heart Sounds: Present: S1 & S2. Absent: rub, click - Extremities Extremities: pulses symmetrical, No edema Peripheral Pulses: within normal limits - Abdominal General gastrointestinal: Present: soft, non-tender, non-distended, normal bowel sounds Male genitourinary: Present: normal - Integumentary Integumentary: Present: clear, warm, dry - Musculoskeletal Musculoskeletal: gait normal, strength equal bilaterally - Psychiatric Psychiatric: appropriate mood/affect, intact judgment & insight - Neurologic Neurologic: CNII-XII intact, moves all extremities Plan Activity: advance as tolerated Weight Bearing Status: Weight Bear as Tolerated Diet: regular Follow up with: PRIMARY CAREMD [Primary Care Provider] - 7 Days ALIZA PLATA MD [Staff Physician] - 7 Days Prescriptions: propranoloL [Inderal] 20 mg PO Q12HR #60 tablet Pantoprazole [Protonix TAB] 40 mg PO BIDAC #60 tablet
--- NOTE | 2020-07-21 14:16 | Gastroenterology Progress Note ---
Assessment and Plan 1. GI: pt w/ anemia with Grade I-II varices on egd - stable overnight without complaints - follow h/, transfuse as needed - PPI qd - diet as tolerated - ok to dc, will sign off Subjective Date of service: 07/21/20 Interval history: - no GI complaints overnight Objective - Constitutional Vitals: Temp Pulse Resp BP Pulse Ox 98.2 F 81 18 120/61 99 07/21/20 13:25 07/21/20 13:25 07/21/20 13:25 07/21/20 13:25 07/21/20 13:25 General appearance: no acute distress - EENT Eyes: PERRL - Respiratory Respiratory: bilateral: CTA - Cardiovascular Rhythm: regular Heart Sounds: Present: S1 & S2 - Gastrointestinal General gastrointestinal: Present: soft, non-tender, non-distended - Labs CBC & Chem 7: 07/21/20 05:31 07/21/20 05:31 Labs: Laboratory Results - last 24 hr 07/18/20 07/20/20 07/20/20 21:58 16:55 21:43 WBC RBC Hgb Hct MCV MCH MCHC RDW Plt Count Lymph % (Auto) [place] % (Auto) Eos % (Auto) Baso % (Auto) Lymph # (Auto) [place] # (Auto) Eos # (Auto) Baso # (Auto) Seg Neutrophils % Seg Neutrophils # Sodium Potassium Chloride Carbon Dioxide Anion Gap BUN Creatinine Estimated GFR BUN/Creatinine Ratio Glucose POC Glucose 101 97 Calcium Total Bilirubin AST ALT Alkaline Phosphatase Total Protein Albumin Albumin/Globulin Ratio Blood Type O POSITIVE Antibody Screen Negative Crossmatch See Detail 07/21/20 07/21/20 07/21/20 05:31 05:31 07:46 WBC 5.4 RBC 3.11 L Hgb 7.1 L Hct 23.1 L MCV 74 L MCH 23 L MCHC 31 L RDW 23.5 H Plt Count 137 L Lymph % (Auto) 15.7 [place] % (Auto) 13.4 H Eos % (Auto) 6.0 H Baso % (Auto) 1.4 Lymph # (Auto) 0.9 L [place] # (Auto) 0.7 Eos # (Auto) 0.3 Baso # (Auto) 0.1 Seg Neutrophils % 63.5 Seg Neutrophils # 3.4 Sodium 136 L Potassium 3.7 Chloride 105.9 Carbon Dioxide 23 Anion Gap 11 BUN 12 Creatinine 0.9 Estimated GFR > 60 BUN/Creatinine Ratio 13 Glucose 105 H POC Glucose 95 Calcium 7.5 L Total Bilirubin 3.20 H AST 42 H ALT 17 Alkaline Phosphatase 77 Total Protein 5.2 L Albumin 2.7 L Albumin/Globulin Ratio 1.1 Blood Type Antibody Screen Crossmatch 07/21/20 12:05 WBC RBC Hgb Hct MCV MCH MCHC RDW Plt Count Lymph % (Auto) [place] % (Auto) Eos % (Auto) Baso % (Auto) Lymph # (Auto) [place] # (Auto) Eos # (Auto) Baso # (Auto) Seg Neutrophils % Seg Neutrophils # Sodium Potassium Chloride Carbon Dioxide Anion Gap BUN Creatinine Estimated GFR BUN/Creatinine Ratio Glucose POC Glucose 129 H Calcium Total Bilirubin AST ALT Alkaline Phosphatase Total Protein Albumin Albumin/Globulin Ratio Blood Type Antibody Screen Crossmatch
[2020-07-21 15:09] VITALS: BP 118/61
== END 2020-07-21 16:56 | disposition home or self-care (01) | DRG 369 ==
LOC: ED 14:23 → 3B-SURG 07-19 00:09 → OBSVTOIN 07-20 15:20
PROVIDERS: ADMIT Internal Medicine Geriatric Medicine; ATTEND Hospitalist
PROC: 30233N1 Transfusion of Nonautologous Red Blood Cells into Peripheral Vein, Percutaneous Approach (ICD-10-PCS; 2020-07-18)
PROC: 0DB78ZX Excision of Stomach, Pylorus, Via Natural or Artificial Opening Endoscopic, Diagnostic (ICD-10-PCS; principal; 2020-07-19)
DX: I85.01 Esophageal varices with bleeding (principal); R18.8 Other ascites; D64.9 Anemia, unspecified; K29.71 Gastritis, unspecified, with bleeding; E80.6 Other disorders of bilirubin metabolism; K74.60 Unspecified cirrhosis of liver; R79.1 Abnormal coagulation profile; I10 Essential (primary) hypertension; E11.9 Type 2 diabetes mellitus without complications; I25.10 Atherosclerotic heart disease of native coronary artery without angina pectoris; Z79.899 Other long term (current) drug therapy; Z79.4 Long term (current) use of insulin
CPT/HCPCS: 36415; 36430; 71046; 76705; 80053; 82962; 83690; 83880; 84484; 85014; 85018; 85025; 85610; 85730; 86850; 86900; 86901; 86920; 88305; 88342; 93005; 96374; 96375; G0378; C9113; J2405; J2704; J3010; J7030; J7040; P9016

== ENCOUNTER 2020-12-08 14:24 | Emergency (ER) | payer OTHER ==
[2020-12-08 14:34] VITALS: BP 116/65
--- NOTE | 2020-12-08 15:11 | XRay Report ---
CHEST 2 VIEWS INDICATION / CLINICAL INFORMATION: chest pain. COMPARISON: None available. FINDINGS: SUPPORT DEVICES: None. HEART / MEDIASTINUM: No significant abnormality. LUNGS / PLEURA: No significant pulmonary or pleural abnormality. No pneumothorax. ADDITIONAL FINDINGS: No significant additional findings. IMPRESSION: 1. No acute findings. Signer Name: Luis Harkins MD Signed: 12/08/2020 3:06 PM Workstation Name: [id number]
[2020-12-08] MEDS ORDERED: oxyCODONE /ACETAMINOPHEN 5-325MG TAB PO ONE (15:19)
[2020-12-08] MEDS ORDERED: IBUPROFEN 800 MG TAB PO ONE (15:19)
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
[2020-12-08 17:14] LABS: Basophils # (Auto) 0.1 K/mm3 (0.0-0.1); Basophils % (Auto) 0.8 % (0.0-1.8); Eosinophils # (Auto) 0.1 K/mm3 (0.0-0.4); Hemoglobin 9.7 gm/dl (11.8-15.2); Lymphocytes # (Auto) 0.7 K/mm3 (1.2-5.4); Mean Corpuscular HGB Conc 31 % (32-34); Mean Corpuscular Volume 81 fl (84-94); Monocytes # (Auto) 0.8 K/mm3 (0.0-0.8); Platelet Count 112 K/mm3 (140-440); Red Blood Count 3.82 M/mm3 (3.65-5.03)
[2020-12-08 17:17] LABS: Red Cell Distribution Width 22.1 % (13.2-15.2)
[2020-12-08 17:37] LABS: Alanine Aminotransferase 15 units/L (7-56); Albumin 3.4 g/dL (3.9-5); Blood Urea Nitrogen 10 mg/dL (9-20); Calcium 8.9 mg/dL (8.4-10.2); Hemolysis Index 6
[2020-12-08 18:03] LABS: BUN/Creatinine Ratio 14
--- NOTE | 2020-12-10 14:23 | Electrocardiograph Report ---
[facility] Test Date: 2020-12-08 Test Time: 16:56:17 Pat Name: STEVEN AVALOS Department: Room: Gender: M Abseiling Instructor: RENY : 1965 Requested By: ZOILA HARMON Order Number: [id number] Reading MD: Janet Florian Measurements Intervals [place] Rate: 115 P: 69 NM: 158 QRS: 30 QRSD: 98 T: 74 QT: 352 QTc: 486 Interpretive Statements Sinus tachycardia No previous ECG available for comparison Electronically Signed On 12-10-2020 14:23:20 EDT by Janet Florian
== END 2020-12-08 19:53 | disposition other institution (70) ==
LOC: ED 14:24
DX: S32.018A Other fracture of first lumbar vertebra, initial encounter for closed fracture (principal); S32.028A Other fracture of second lumbar vertebra, initial encounter for closed fracture; S22.20XA Unspecified fracture of sternum, initial encounter for closed fracture; R07.89 Other chest pain; I10 Essential (primary) hypertension; E11.9 Type 2 diabetes mellitus without complications; Z88.8 Allergy status to other drugs, medicaments and biological substances; Z88.1 Allergy status to other antibiotic agents; Z88.0 Allergy status to penicillin; Z79.899 Other long term (current) drug therapy; V89.2XXA Person injured in unspecified motor-vehicle accident, traffic, initial encounter; Y93.89 Activity, other specified; Y92.488 Other paved roadways as the place of occurrence of the external cause; Y99.8 Other external cause status
CPT/HCPCS: 36415; 71046; 71250; 72125; 72131; 80053; 84484; 85025; 93005; 99285

== ENCOUNTER 2020-12-14 20:30 | Inpatient (IN) | payer OTHER ==
--- NOTE | 2020-12-14 21:26 | Emergency Department Report ---
ED N/V/D HPI - General Chief complaint: Nausea/Vomiting/Diarrhea Stated complaint: N/V LIVER FAILURE Time Seen by Provider: 12/14/20 21:09 Source: EMS Mode of arrival: Stretcher Limitations: Physical Limitation - History of Present Illness Initial comments: 55-year-old male, history of diabetes, hypertension, CAD with stents, kidney stones, liver cirrhosis, gastritis, grade I-II esophageal varices, anemia, presents to ED with nausea vomiting x4 days. Patient states emesis has been nonbloody, nonbilious. He denies any fever or diarrhea. He reports some sharp abdominal pain located just to the right of the umbilicus. Patient denies any sick contacts. He received 4 Zofran en route from EMS. MD complaint: nausea, vomiting, abdominal pain -: days(s) (4) Description of Vomiting: food contents Associated Abdominal Pain: Yes Location: [place] Severity: moderate Quality: sharp Consistency: constant Improves with: none Worsens with: none Associated Symptoms: nausea/vomiting. denies: fever/chills - Related Data Previous Rx's Medication Instructions Recorded Last Taken Type RX: Pantoprazole [Protonix TAB] 40 mg PO BIDAC #60 tablet 07/21/20 Unknown Rx RX: propranoloL [Inderal] 20 mg PO Q12HR #60 tablet 07/21/20 Unknown Rx Allergies Allergy/AdvReac Type Severity Reaction Status Date / Time clindamycin Allergy Unknown Verified 07/18/20 14:46 doxycycline [From Vibramycin] Allergy Unknown Verified 07/18/20 14:46 Penicillins Allergy Unknown Verified 07/18/20 14:46 ED Review of Systems ROS: Stated complaint: N/V LIVER FAILURE Other details as noted in HPI ED Past Medical Hx - Past Medical History Previous Medical History?: Yes Hx Hypertension: Yes Hx Heart Attack/AMI: Yes (2010 3 stent placement) Hx Congestive Heart Failure: No Hx Diabetes: Yes Hx Pulmonary Embolism: No Hx Liver Disease: Yes Hx Renal Disease: Yes (Hx. of renal calculi) Hx Arthritis: No Hx Seizures: No Hx Kidney Stones: No Hx Asthma: No Hx COPD: No Additional medical history: hepatic failure, jaundice - Surgical History Past Surgical History?: Yes Hx Coronary Stent: Yes (3 stent 2010) Hx Open Heart Surgery: No Hx Pacemaker: No Hx Cholecystectomy: No Hx Appendectomy: No - Social History Smoking Status: Never Smoker Substance Use Type: Alcohol - Medications Home Medications: Home Medications Medication Instructions Recorded Confirmed Last Taken Type RX: Pantoprazole [Protonix TAB] 40 mg PO BIDAC #60 tablet 07/21/20 Unknown Rx RX: propranoloL [Inderal] 20 mg PO Q12HR #60 tablet 07/21/20 Unknown Rx ED Physical Exam - General Limitations: Physical Limitation General appearance: alert, in no apparent distress - Head Head exam: Present: atraumatic, normocephalic - Eye Eye exam: Present: normal appearance, EOMI - ENT ENT exam: Present: mucous membranes moist - Neck Neck exam: Present: normal inspection - Respiratory Respiratory exam: Present: normal lung sounds bilaterally. Absent: respiratory distress - Cardiovascular Cardiovascular Exam: Present: regular rate, normal rhythm - GI/Abdominal GI/Abdominal exam: Present: soft, tenderness (periumbilical, RUQ, RLQ tenderness). Absent: distended - Extremities Exam Extremities exam: Present: pedal edema - Neurological Exam Neurological exam: Present: alert. Absent: oriented X3 (oriented to person and place, confused about the year, answers other questions appropriately, but slow w/ responses) - Psychiatric Psychiatric exam: Present: normal affect, normal mood - Skin Skin exam: Present: warm, dry, intact, normal color ED Course Vital Signs 12/14/20 12/14/20 12/14/20 21:37 21:38 22:00 Temperature 100.2 F H Pulse Rate 90 90 Respiratory 19 27 H Rate Blood Pressure 150/74 Blood Pressure 156/79 [Left] O2 Sat by Pulse 100 100 100 Oximetry 12/14/20 12/14/20 12/14/20 22:16 22:30 22:46 Temperature Pulse Rate 93 H 94 H 85 Respiratory 15 14 8 L Rate Blood Pressure 150/74 150/74 150/74 Blood Pressure [Left] O2 Sat by Pulse 100 100 100 Oximetry 12/14/20 12/14/20 12/15/20 23:00 23:58 00:00 Temperature 100.5 F H Pulse Rate 87 97 H 92 H Respiratory 12 19 17 Rate Blood Pressure 150/74 152/76 Blood Pressure 152/76 [Left] O2 Sat by Pulse 100 100 100 Oximetry 12/15/20 12/15/20 12/15/20 00:07 01:07 01:38 Temperature Pulse Rate 101 H Respiratory 19 16 18 Rate Blood Pressure 158/75 Blood Pressure [Left] O2 Sat by Pulse 99 Oximetry 12/15/20 12/15/20 12/15/20 02:00 03:00 04:00 Temperature Pulse Rate 99 H 94 H 88 Respiratory 19 24 21 Rate Blood Pressure 132/63 136/61 136/61 Blood Pressure [Left] O2 Sat by Pulse 99 99 98 Oximetry 12/15/20 12/15/20 12/15/20 05:00 05:59 06:00 Temperature Pulse Rate 90 96 H Respiratory 23 16 16 Rate Blood Pressure 122/57 128/59 Blood Pressure [Left] O2 Sat by Pulse 100 98 Oximetry 12/15/20 12/15/20 12/15/20 06:01 06:59 07:00 Temperature 99 F Pulse Rate 84 Respiratory 18 17 Rate Blood Pressure 130/60 Blood Pressure [Left] O2 Sat by Pulse 99 Oximetry 12/15/20 12/15/20 12/15/20 07:43 09:00 09:44 Temperature Pulse Rate 76 Respiratory 16 10 L Rate Blood Pressure 119/52 Blood Pressure [Left] O2 Sat by Pulse 100 100 Oximetry 12/15/20 12/15/20 12/15/20 10:00 11:00 12:00 Temperature Pulse Rate 89 87 95 H Respiratory 14 16 16 Rate Blood Pressure 130/59 144/73 141/75 Blood Pressure [Left] O2 Sat by Pulse 99 100 100 Oximetry 12/15/20 12/15/20 12/15/20 13:00 14:00 15:00 Temperature Pulse Rate 100 H 89 88 Respiratory 15 15 11 L Rate Blood Pressure 155/70 129/60 126/58 Blood Pressure [Left] O2 Sat by Pulse 99 99 99 Oximetry 12/15/20 12/15/20 12/15/20 16:00 16:40 16:50 Temperature Pulse Rate 86 88 83 Respiratory 10 L 12 13 Rate Blood Pressure 119/59 119/59 119/59 Blood Pressure [Left] O2 Sat by Pulse 100 99 98 Oximetry 12/15/20 12/15/20 12/15/20 17:00 17:10 17:20 Temperature Pulse Rate 85 87 83 Respiratory 12 11 L 12 Rate Blood Pressure 124/69 124/69 124/69 Blood Pressure [Left] O2 Sat by Pulse 100 99 98 Oximetry 07/30/21 07/30/21 07/30/21 17:30 17:40 17:50 Temperature Pulse Rate 85 83 88 Respiratory 11 L 10 L 12 Rate Blood Pressure 124/69 124/69 124/69 Blood Pressure [Left] O2 Sat by Pulse 100 100 99 Oximetry 12/15/20 12/15/20 12/15/20 18:00 18:10 18:20 Temperature Pulse Rate 88 79 83 Respiratory 11 L 11 L 11 L Rate Blood Pressure 145/67 145/67 145/67 Blood Pressure [Left] O2 Sat by Pulse 99 100 99 Oximetry 12/15/20 12/15/20 12/15/20 18:30 18:40 18:50 Temperature Pulse Rate 84 84 84 Respiratory 13 11 L 12 Rate Blood Pressure 145/67 145/67 145/67 Blood Pressure [Left] O2 Sat by Pulse 99 99 99 Oximetry 12/15/20 12/15/20 12/15/20 19:00 19:10 19:20 Temperature Pulse Rate 82 84 86 Respiratory 13 13 13 Rate Blood Pressure 121/61 121/61 121/61 Blood Pressure [Left] O2 Sat by Pulse 100 100 98 Oximetry 12/15/20 12/15/20 12/15/20 19:30 19:40 19:50 Temperature Pulse Rate 84 90 94 H Respiratory 13 16 21 Rate Blood Pressure 121/61 121/61 121/61 Blood Pressure [Left] O2 Sat by Pulse 99 99 99 Oximetry 12/15/20 12/15/20 12/15/20 20:00 20:10 20:20 Temperature Pulse Rate 83 84 88 Respiratory 13 13 14 Rate Blood Pressure 122/69 122/69 122/69 Blood Pressure [Left] O2 Sat by Pulse 99 100 98 Oximetry 12/15/20 12/15/20 12/15/20 20:30 20:40 20:50 Temperature Pulse Rate 83 86 85 Respiratory 10 L 14 13 Rate Blood Pressure 125/64 125/64 125/64 Blood Pressure [Left] O2 Sat by Pulse 99 97 98 Oximetry - Consultations Consultation #1: 12/15/20 00:20 Spoke w/ Dr Cody. Advises to obtain US given hx of cirrhosis. 12/15/20 02:31 Inform , Of ultrasound results. She suggests patient be transferred to a facility that has hepatobiliary support in case complications such as bleeding arise from patient's cirrhosis. If any issues with attempting to transfer the patient she will be okay with patient staying here at our hospital. 12/15/20 02:41 - [facility] only accepting trauma, esposito, and stroke transfers. - I spoke with Dr. Reed, general surgeon at [place]. States he does not feel this patient needs to be transferred. He feels as though this patient can be managed without having hepatobiliary support. He states if an issue arises after surgery, feel free to call back. Also states there are no beds available. ED Medical Decision Making - Lab Data Result diagrams: 12/14/20 21:48 12/14/20 21:47 - Radiology Data Radiology results: report reviewed, image reviewed - Medical Decision Making 55-year-old male, history of liver cirrhosis, presents to ED with abdominal pain, nausea and vomiting. Patient found to have acute cholecystitis. Fever 100.5. WBCs normal. Total bili is elevated. Baseline total bili is around 3, today it is slightly higher than previous visits. Thrombocytopenia present, which patient has had in the past. Patient is somewhat confused at times. Ammonia level was slightly elevated, so lactulose given. Spoke with Dr. Cody, general surgeon, who agrees to see the patient. Patient will be admitted to hospitalist for further management. Critical care attestation.: If time is entered above; I have spent that time in minutes in the direct care of this critically ill patient, excluding procedure time. ED Disposition Clinical Impression: Acute cholecystitis, Liver cirrhosis, Thrombocytopenia, Hyperammonemia Disposition: OP ADMIT IP TO THIS HOSP Is pt being admited?: Yes Condition: Stable
[2020-12-14 22:03] LABS: Basophils # (Auto) 0.1 K/mm3 (0.0-0.1); Basophils % (Auto) 0.6 % (0.0-1.8); Eosinophils # (Auto) 0.1 K/mm3 (0.0-0.4); Eosinophils % (Auto) 0.6 % (0.0-4.3); Hematocrit 29.4 % (35.5-45.6); Hemoglobin 9.2 gm/dl (11.8-15.2); Lymphocytes # (Auto) 0.7 K/mm3 (1.2-5.4); Mean Corpuscular HGB Conc 31 % (32-34); Mean Corpuscular Volume 83 fl (84-94); Monocytes # (Auto) 1.4 K/mm3 (0.0-0.8); Monocytes % (Auto) 14.5 % (0.0-7.3); Platelet Count 78 K/mm3 (140-440); Red Blood Count 3.53 M/mm3 (3.65-5.03); Red Cell Distribution Width 22.1 % (13.2-15.2)
[2020-12-14 22:24] LABS: Alanine Aminotransferase 28 units/L (7-56); Albumin 3.4 g/dL (3.9-5); BUN/Creatinine Ratio 14; Bilirubin,Direct 1.4 mg/dL (0-0.2); Blood Urea Nitrogen 11 mg/dL (9-20); Calcium 8.8 mg/dL (8.4-10.2); Hemolysis Index 4
[2020-12-14] MEDS ORDERED: ONDANSETRON 4 MG/2 ML INJ IV ONE (23:14)
[2020-12-14] MEDS ORDERED: SODIUM CHLORIDE 0.9% 1000 ML 1,000 ML IV ONE (23:14)
--- NOTE | 2020-12-14 23:33 | Cat Scan Report ---
CT ABDOMEN AND PELVIS WITH CONTRAST INDICATION / CLINICAL INFORMATION: Unspecified abdominal pain with nausea and vomiting. TECHNIQUE: Axial CT images were obtained through the abdomen and pelvis after 100 cc Omnipaque [address] scans at this location are performed using CT dose reduction for ALARA by means of automated exposure control. COMPARISON: None available. FINDINGS: LOWER CHEST: Mild bibasilar atelectasis is noted with a trace right pleural effusion. No other signif icant abnormalities. LIVER: Cirrhotic without other significant abnormalities. GALLBLADDER: The gallbladder is markedly distended and contains multiple stones without significant w all thickening. There is mild pericholecystic fat stranding. BILE DUCTS: No significant abnormality. PANCREAS: No significant abnormality. SPLEEN: Mildly enlarged, measuring 13.3 cm in length. No other significant abnormality. ADRENALS: No significant abnormality. RIGHT KIDNEY / URETER: No significant abnormality. LEFT KIDNEY / URETER: No significant abnormality. STOMACH / SMALL BOWEL: No significant abnormality. COLON: There is sigmoid diverticulosis without evidence of diverticulitis. No other significant abnor mality. APPENDIX: No significant abnormality. PERITONEUM: No free fluid. No free air. No fluid collection. LYMPH NODES: No significant adenopathy. AORTA / ARTERIES: There is mild generalized atherosclerosis without other significant abnormalities. IVC / VEINS: No significant abnormality. URINARY BLADDER: No significant abnormality. REPRODUCTIVE ORGANS: No significant abnormality. ADDITIONAL FINDINGS: None. SKELETAL SYSTEM: Mild degenerative changes are seen along the spine and pelvis without other signific ant abnormalities. IMPRESSION: 1. Cholelithiasis with suspected acute cholecystitis. Please correlate with the clinical findings. 2. Additional findings as above. Signer Name: Brayden Giraldo MD Signed: 12/14/2020 11:29 PM Workstation Name: [id number]
[2020-12-15] MEDS ORDERED: IBUPROFEN 800 MG TAB PO ONE (00:02)
[2020-12-15 00:26] LABS: INR 1.5 (0.87-1.13)
[2020-12-15 00:27] LABS: Partial Thromboplastin Time 35.9 Sec. (24.2-36.6)
[2020-12-15] MEDS ORDERED: levoFLOXacin 500 MG TAB PO ONE (01:26)
--- NOTE | 2020-12-15 01:54 | Ultrasound Report ---
ULTRASOUND ABDOMEN, LIMITED (RIGHT UPPER QUADRANT) INDICATION: abd pain, questionable cholecystitis on CT. COMPARISON: CT abdomen and pelvis with contrast from 12/14/2020. FINDINGS: Pancreas: Obscured by bowel gas. Liver: Similarly cirrhotic without acute abnormalities. Gallbladder: Markedly distended, measuring 15.1 cm in length with multiple stones noted along with a moderate amount of sludge. No significant wall thickening or pericholecystic fluid. Sonographic Murp hy's sign: Positive. Bile ducts: The common duct is dilated and measures 9 mm in diameter without visualization of choledo cholithiasis. No intrahepatic biliary ductal dilatation. Free fluid: None. Additional Findings: There is a 6 mm echogenic focus along the right lower renal pole without associa bruce shadowing. No stone of this size is identified in this location on the prior CT. IMPRESSION: 1. Cholelithiasis with sonographic evidence of acute cholecystitis. 2. Nonspecific mild common bile duct dilatation without visualization of choledocholithiasis. 3. Additional findings as above. Signer Name: Brayden Giraldo MD Signed: 12/15/2020 1:50 AM Workstation Name: [id number]
[2020-12-15 02:39] LABS: Bilirubin,Urine NEG (Negative); Blood,Urine NEG (Negative); Color,Urine Amber (Yellow); Protein,Urine <15 mg/dL mg/dL (Negative); WBC,Urine < 1.0 /HPF (0.0-6.0)
[2020-12-15] MEDS ORDERED: LACTULOSE 20 GM/30 ML ORAL LIQD PO ONE ×2 (02:45→04:32)
--- NOTE | 2020-12-15 04:21 | History and Physical Report ---
History of Present Illness Date of examination: 12/15/20 Date of admission: 12/15/20 02:48 Chief complaint: Nausea and vomiting Abdominal pain and diarrhea History of present illness: Disease 80 55-year-old male seen in ED at bedside. Patient said he came due to nausea vomiting and diarrhea. Patient has a history of diabetes, hypertension, CAD with stents, kidney stones, liver cirrhosis, gastritis, grade I-II esophageal varices, anemia, presents to ED with nausea vomiting x4 days. Patient states emesis has been nonbloody, nonbilious. He denies chest pain and fever. But patient reported abdominal pain around the umbilicus. I reviewed medication record and vital signs. Patient has elevated ammonia levelwe will give lactulose, monitor ammonia level. Past History Past Medical History: CAD, diabetes, hypertension Past Surgical History: No surgical history Social history: lives with family, alcohol abuse Family history: no significant family history Medications and Allergies Allergies Allergy/AdvReac Type Severity Reaction Status Date / Time clindamycin Allergy Unknown Verified 07/18/20 14:46 doxycycline [From Vibramycin] Allergy Unknown Verified 07/18/20 14:46 Penicillins Allergy Unknown Verified 07/18/20 14:46 Home Medications Medication Instructions Recorded Confirmed Last Taken Type Pantoprazole [Protonix TAB] 40 mg PO BIDAC #60 tablet 07/21/20 Unknown Rx propranoloL [Inderal] 20 mg PO Q12HR #60 tablet 07/21/20 Unknown Rx Review of Systems Constitutional: fatigue, weakness Ears, nose, mouth and throat: no epistaxis, no bleeding gums Gastrointestinal: abdominal pain, nausea, vomiting, diarrhea Genitourinary Male: other Rectal: no hemorrhoids Musculoskeletal: muscle weakness Integumentary: no rash, no pruritis Neurological: confusion, other (Mildly confused) Psychiatric: anxiety Hematologic/Lymphatic: no easy bruising, no easy bleeding Exam - Constitutional Vitals: Temp Pulse Resp BP Pulse Ox 100.5 F H 88 21 136/61 98 12/14/20 23:58 12/15/20 04:00 12/15/20 04:00 12/15/20 04:00 12/15/20 04:00 General appearance: Present: mild distress, obese - EENT Eyes: Present: PERRL ENT: hearing intact, clear oral mucosa - Neck Neck: Present: supple, normal ROM - Respiratory Respiratory effort: normal Respiratory: bilateral: CTA - Cardiovascular Heart Sounds: Present: S1 & S2. Absent: rub, click - Extremities Extremities: pulses symmetrical, No edema Peripheral Pulses: within normal limits - Abdominal General gastrointestinal: Present: soft, non-tender, non-distended, normal bowel sounds Male genitourinary: Present: normal - Integumentary Integumentary: Present: clear, warm, dry - Musculoskeletal Musculoskeletal: strength equal bilaterally, generalized weakness - Psychiatric Psychiatric: appropriate mood/affect, intact judgment & insight, cooperative - Neurologic Neurologic: CNII-XII intact, moves all extremities - Allied Health Allied health notes reviewed: nursing Results - Labs CBC & Chem 7: 12/14/20 21:48 12/14/20 21:47 Labs: Abnormal lab results 12/14/20 12/14/20 12/14/20 Range/Units 21:47 21:47 21:48 RBC 3.53 L (3.65-5.03) M/mm3 Hgb 9.2 L (11.8-15.2) gm/dl Hct 29.4 L (35.5-45.6) % MCV 83 L (84-94) fl MCH 26 L (28-32) pg MCHC 31 L (32-34) % RDW 22.1 H (13.2-15.2) % Plt Count 78 L (140-440) K/mm3 Lymph % (Auto) 7.0 L (13.4-35.0) % [place] % (Auto) 14.5 H (0.0-7.3) % Lymph # (Auto) 0.7 L (1.2-5.4) K/mm3 [place] # (Auto) 1.4 H (0.0-0.8) K/mm3 Seg Neutrophils % 77.3 H (40.0-70.0) % PT (12.2-14.9) Sec. INR (0.87-1.13) Carbon Dioxide 18 L (22-30) mmol/L Glucose 104 H (75-100) mg/dL Total Bilirubin 4.30 H (0.1-1.2) mg/dL Direct Bilirubin 1.4 H (0-0.2) mg/dL AST 73 H (5-40) units/L Ammonia 91.0 H (25-60) umol/L Total Protein 6.1 L (6.3-8.2) g/dL Albumin 3.4 L (3.9-5) g/dL Ur Specific [place] (1.003-1.030) 12/14/20 12/15/20 Range/Units 23:57 02:26 RBC (3.65-5.03) M/mm3 Hgb (11.8-15.2) gm/dl Hct (35.5-45.6) % MCV (84-94) fl MCH (28-32) pg MCHC (32-34) % RDW (13.2-15.2) % Plt Count (140-440) K/mm3 Lymph % (Auto) (13.4-35.0) % [place] % (Auto) (0.0-7.3) % Lymph # (Auto) (1.2-5.4) K/mm3 [place] # (Auto) (0.0-0.8) K/mm3 Seg Neutrophils % (40.0-70.0) % PT 18.6 H (12.2-14.9) Sec. INR 1.50 H (0.87-1.13) Carbon Dioxide (22-30) mmol/L Glucose (75-100) mg/dL Total Bilirubin (0.1-1.2) mg/dL Direct Bilirubin (0-0.2) mg/dL AST (5-40) units/L Ammonia (25-60) umol/L Total Protein (6.3-8.2) g/dL Albumin (3.9-5) g/dL Ur Specific [place] 1.060 H (1.003-1.030) Assessment and Plan - Patient Problems (1) Acute cholecystitis Current Visit: Yes Status: Acute Plan to address problem: CT of the abdomen and pelvis showed mild to [place] atelectasis with trace of right pleural effusion, trace of sigmoid diverticulosis without evidence of diverticulitis liver cirrhosis and [place] lithiasis with suspected acute cholecystitis General surgeon consultfollow-up with plan of care (2) Hyperammonemia Current Visit: Yes Status: Acute Plan to address problem: Given lactulose Monitor ammonia level (3) Liver cirrhosis Current Visit: Yes Status: Acute Qualifiers: Plan to address problem: Likely secondary to alcohol abuse Supportive care (4) Thrombocytopenia Current Visit: Yes Status: Acute Plan to address problem: Likely secondary to liver failure Monitor platelet and monitor for bleeding (5) Nausea and vomiting Current Visit: Yes Status: Acute Plan to address problem: Continue antiemetic Monitor electrolytes (6) Full code status Current Visit: No Status: Acute Plan to address problem: Patient is full code (7) DVT prophylaxis Current Visit: Yes Status: Acute Plan to address problem: SCD will hold off on anticoagulantpatient platelet is low
[2020-12-15] MEDS ORDERED: METOCLOPRAMIDE 10 MG/2 ML INJ IV PRN (04:34)
[2020-12-15] MEDS ORDERED: ONDANSETRON 4 MG/2 ML INJ IV PRN (04:34)
[2020-12-15] MEDS ORDERED: HYDROcodone/ACETAMINOPHEN 5-325 MG TAB PO PRN (04:34)
[2020-12-15] MEDS ORDERED: MAGNESIUM HYDROXIDE (MOM) ORAL LIQD UDC PO PRN (04:34)
[2020-12-15] MEDS ORDERED: NALOXONE 0.4 MG/1 ML INJ IV PRN (04:34)
[2020-12-15] MEDS ORDERED: oxyCODONE /ACETAMINOPHEN 5-325MG TAB PO PRN (04:34)
[2020-12-15] MEDS ORDERED: ALUM-MAG HYDROXIDE-SIMETHICONE 200-200-20MG/5ML ORAL LIQD 30 ML PO PRN (04:34)
[2020-12-15] MEDS ORDERED: IBUPROFEN 600 MG TAB PO PRN (04:34)
[2020-12-15] MEDS: D5W/0.9% NACL 1,000 ML IV SCH ×2 (05:50→19:47)
[2020-12-15] MEDS ORDERED: PANTOPRAZOLE 40 MG TAB PO SCH (07:30)
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
[2020-12-15] MEDS: PROPRANOLOL 10 MG TAB PO SCH ×2 (11:56→23:34)
[2020-12-15] MEDS: HYDROmorphone 1 MG/1 ML INJ IV PRN ×2 (14:19→19:42)
[2020-12-15] MEDS: metroNIDAZOLE/NS 500 MG/100 ML 500 MG/100 ML BAG IV SCH ×2 (14:20→19:39)
--- NOTE | 2020-12-15 14:27 | Consultation ---
History of Present Illness Consult date: 12/15/20 Consult reason: pre op evaluation History of present illness: The patient is a 55-year-old man admitted to the hospital with 24 hours of nausea and vomiting and abdominal pain, after initial evaluation, he is diagnosed with acute cholecystitis, and is planned for urgent surgery. Cardiac consultation was requested for preoperative assessment. The patient gives a history of coronary artery disease and states that in 2010 he suffered a myocardial infarction, underwent cardiac catheterization with coronary stent placement. He admits to no consistent cardiac follow-up since then. He states his cardiac evaluation at that time was done in this hospital, but in our [facility] system, there are no records for this patient earlier than July 2020. He has no cardiac complaints, no chest pain, unusual shortness of breath, no palpitations, no lower extremity edema. Comorbidities include chronic anemia, with a current hematocrit of 29, and chronic thrombocytopenia, with a current platelet count of 78,000. A 12-lead ECG is pending for cardiac preoperative assessment. Past History Past Medical History: CAD (With stents), diabetes, GERD, hypertension, other (Cirrhosis) Past Surgical History: No surgical history, PTCA Social history: lives with family, alcohol abuse Family history: no significant family history Medications and Allergies Allergies Allergy/AdvReac Type Severity Reaction Status Date / Time clindamycin Allergy Unknown Verified 07/18/20 14:46 doxycycline [From Vibramycin] Allergy Unknown Verified 07/18/20 14:46 Penicillins Allergy Unknown Verified 07/18/20 14:46 Home Medications Medication Instructions Recorded Confirmed Last Taken Type Pantoprazole [Protonix TAB] 40 mg PO BIDAC #60 tablet 07/21/20 Unknown Rx propranoloL [Inderal] 20 mg PO Q12HR #60 tablet 07/21/20 Unknown Rx Active Meds: Active Medications Acetaminophen (Acetaminophen 325 Mg Tab) 650 mg PO Q4H PRN PRN Reason: Pain MILD(1-3)/Fever >100.5/SAGASTUME Al Hydrox/Mg Hydrox/Simethicone (Alum-Mag Hydroxide-Simethicone [phone]/5ml Oral Liqd 30 Ml) 30 ml PO Q4H PRN PRN Reason: Indigestion Hydromorphone HCl (Hydromorphone 1 Mg/1 Ml Inj) 0.5 mg IV Q3H PRN PRN Reason: Pain , Severe (7-10) Last Admin: 07/30/21 14:19 Dose: 0.5 mg Documented by: Dextrose/Sodium Chloride (D5ns) 1,000 mls @ 75 mls/hr IV DIRECT [facility] Last Admin: 12/15/20 05:50 Dose: 75 mls/hr Documented by: Levofloxacin/Dextrose (Levaquin 500mg/100ml) 500 mg in 100 mls @ 100 mls/hr IV Q24H [facility]; Protocol Metronidazole (Flagyl 500 Mg/100 Ml) 500 mg in 100 mls @ 100 mls/hr IV Q8H [facility]; Protocol Last Admin: 12/15/20 14:20 Dose: 100 mls/hr Documented by: Magnesium Hydroxide (Magnesium Hydroxide (Mom) Oral Liqd Udc) 30 ml PO Q4H PRN PRN Reason: Constipation Metoclopramide HCl (Metoclopramide 10 Mg/2 Ml Inj) 10 mg IV Q6H PRN PRN Reason: Nausea And Vomiting Morphine Sulfate (Morphine 2 Mg/1 Ml Inj) 2 mg IV Q4H PRN PRN Reason: Pain, Moderate (4-6) Naloxone HCl (Naloxone 0.4 Mg/1 Ml Inj) 0.1 mg IV Q2MIN PRN PRN Reason: Res Rate </= 8 or 02 SAT < 92% Ondansetron HCl (Ondansetron 4 Mg/2 Ml Inj) 4 mg IV Q8H PRN PRN Reason: Nausea And Vomiting Pantoprazole Sodium (Pantoprazole 40 Mg Inj) 40 mg IV QDAY [facility] Propranolol HCl (Propranolol 10 Mg Tab) 20 mg PO Q12HR [facility] Last Admin: 12/15/20 11:56 Dose: Not Given Documented by: Sodium Chloride (Sodium Chloride 0.9% 10 Ml Flush Syringe) 10 ml IV BID [facility] Last Admin: 12/15/20 14:23 Dose: 10 ml Documented by: Review of Systems Cardiovascular: no chest pain, no orthopnea, no palpitations, no rapid/irregular heart beat, no edema, no syncope, no lightheadedness, no shortness of breath Gastrointestinal: abdominal pain, nausea, vomiting Physical Examination Vital Signs Temp Pulse Resp BP Pulse Ox 100.2 F H 90 19 156/79 100 12/14/20 21:37 12/14/20 21:37 12/14/20 21:37 12/14/20 21:37 12/14/20 21:37 General appearance: no acute distress HEENT: Positive: PERRL Neck: Positive: neck supple Cardiac: Positive: Reg Rate and Rhythm Lungs: Positive: Decreased Breath Sounds Neuro: Positive: Grossly Intact Abdomen: Positive: Soft Male genitourinary: Positive: deferred Skin: Positive: Clear Extremities: Absent: edema Results 12/14/20 21:48 12/14/20 21:47 Cardiac Enzymes 12/14/20 Range/Units 21:47 AST 73 H (5-40) units/L Coagulation 12/14/20 Range/Units 23:57 PT 18.6 H (12.2-14.9) Sec. INR 1.50 H (0.87-1.13) APTT 35.9 (24.2-36.6) Sec. CBC 12/14/20 Range/Units 21:48 WBC 9.6 (4.5-11.0) K/mm3 RBC 3.53 L (3.65-5.03) M/mm3 Hgb 9.2 L (11.8-15.2) gm/dl Hct 29.4 L (35.5-45.6) % Plt Count 78 L (140-440) K/mm3 Lymph # (Auto) 0.7 L (1.2-5.4) K/mm3 [place] # (Auto) 1.4 H (0.0-0.8) K/mm3 Eos # (Auto) 0.1 (0.0-0.4) K/mm3 Baso # (Auto) 0.1 (0.0-0.1) K/mm3 Comprehensive Metabolic Panel 12/14/20 Range/Units 21:47 Sodium 139 (137-145) mmol/L Potassium 4.2 (3.6-5.0) mmol/L Chloride 106.5 (98-107) mmol/L Carbon Dioxide 18 L (22-30) mmol/L BUN 11 (9-20) mg/dL Creatinine 0.8 (0.8-1.3) mg/dL Glucose 104 H (75-100) mg/dL Calcium 8.8 (8.4-10.2) mg/dL Direct Bilirubin 1.4 H (0-0.2) mg/dL Indirect Bilirubin 2.9 mg/dL AST 73 H (5-40) units/L ALT 28 (7-56) units/L Alkaline Phosphatase 102 (35-129) units/L Total Protein 6.1 L (6.3-8.2) g/dL Albumin 3.4 L (3.9-5) g/dL Assessment and Plan - Patient Problems (1) Encounter for preoperative assessment Current Visit: Yes Status: Acute Plan to address problem: 55-year-old man who is awaiting urgent surgery for acute cholecystitis. He reports a history of coronary artery disease, previous coronary stenting about 10 years ago, with no consistent cardiac follow-up. He is currently in the emergency room, awaiting further surgical assessment. There are no current or recent cardiac complaints. A 12-lead EKG has not been performed. Recommendations: We will order a twelve-lead EKG, if negative, patient may proceed to urgent surgery for acute cholecystitis. Based on his history as he reports it, perioperative cardiac risk is moderate. Recommend telemetry monitoring and daily twelve-lead EKG for 2 days post surgery. We will continue to follow patient with you.
[2020-12-16] MEDS: MORPHINE 2 MG/1 ML INJ IV PRN ×2 (03:08→12:32)
[2020-12-16] MEDS: D5W/0.9% NACL 1,000 ML IV SCH ×2 (03:09→22:05)
[2020-12-16] MEDS: metroNIDAZOLE/NS 500 MG/100 ML 500 MG/100 ML BAG IV SCH ×3 (03:14→18:30)
[2020-12-16 05:33] LABS: Basophils # (Auto) 0.1 K/mm3 (0.0-0.1); Basophils % (Auto) 0.4 % (0.0-1.8); Eosinophils # (Auto) 0.2 K/mm3 (0.0-0.4); Eosinophils % (Auto) 1.2 % (0.0-4.3); Hematocrit 26.7 % (35.5-45.6); Hemoglobin 8.3 gm/dl (11.8-15.2); Lymphocytes # (Auto) 0.6 K/mm3 (1.2-5.4); Lymphocytes % (Auto) 3.9 % (13.4-35.0); Mean Corpuscular HGB Conc 31 % (32-34); Mean Corpuscular Volume 82 fl (84-94); Monocytes # (Auto) 1.8 K/mm3 (0.0-0.8); Monocytes % (Auto) 12.3 % (0.0-7.3); Red Blood Count 3.24 M/mm3 (3.65-5.03)
[2020-12-16 05:46] LABS: Platelet Count 61 K/mm3 (140-440)
[2020-12-16 05:50] LABS: Alanine Aminotransferase 20 units/L (7-56); Albumin 2.7 g/dL (3.9-5); BUN/Creatinine Ratio 15; Blood Urea Nitrogen 12 mg/dL (9-20); Calcium 8.1 mg/dL (8.4-10.2); Hemolysis Index 4
[2020-12-16] MEDS: HYDROmorphone 1 MG/1 ML INJ IV PRN ×3 (06:01→18:30)
[2020-12-16] MEDS: PANTOPRAZOLE 40 MG INJ IV SCH (09:46)
--- NOTE | 2020-12-16 09:51 | Progress Note ---
Assessment and Plan Acute Cholecystitis: Awaiting surgery Prior h/o CAD s/p PCI Recommendations: Reasonable to proceed with surgery from cardiac perspective. He will be at moderate risk for magdy-operative cardiac complications. Subjective Date of service: 12/16/20 Principal diagnosis: Acute cholecystitis Interval history: No acute cardiac events ECG reveals sinus rhythm with borderline prolonged QTc, otherwise unremarkable. Objective Vital Signs Temp Pulse Resp BP Pulse Ox 12/16/20 07:57 98.3 F 85 20 111/63 85 12/16/20 05:15 99.1 F 86 20 132/60 90 12/16/20 02:54 98 12/15/20 23:56 98.5 F 90 20 137/69 95 12/15/20 23:34 104 H 157/73 12/15/20 22:12 98.2 F 104 H 20 157/73 95 12/15/20 21:30 100 H 24 109/61 96 12/15/20 21:20 85 15 109/61 97 12/15/20 21:10 88 15 109/61 97 12/15/20 21:00 83 13 109/61 97 12/15/20 20:50 85 13 125/64 98 12/15/20 20:40 86 14 125/64 97 12/15/20 20:30 83 10 L 125/64 99 12/15/20 20:20 88 14 122/69 98 12/15/20 20:10 84 13 122/69 100 12/15/20 20:00 83 13 122/69 99 12/15/20 19:50 94 H 21 121/61 99 12/15/20 19:40 90 16 121/61 99 12/15/20 19:30 84 13 121/61 99 12/15/20 19:20 86 13 121/61 98 12/15/20 19:10 84 13 121/61 100 12/15/20 19:00 82 13 121/61 100 12/15/20 18:50 84 12 145/67 99 12/15/20 18:40 84 11 L 145/67 99 12/15/20 18:30 84 13 145/67 99 12/15/20 18:20 83 11 L 145/67 99 12/15/20 18:10 79 11 L 145/67 100 12/15/20 18:00 88 11 L 145/67 99 12/15/20 17:50 88 12 124/69 99 12/15/20 17:40 83 10 L 124/69 100 12/15/20 17:30 85 11 L 124/69 100 12/15/20 17:20 83 12 124/69 98 12/15/20 17:10 87 11 L 124/69 99 12/15/20 17:00 85 12 124/69 100 12/15/20 16:50 83 13 119/59 98 12/15/20 16:40 88 12 119/59 99 12/15/20 16:00 86 10 L 119/59 100 12/15/20 15:00 88 11 L 126/58 99 12/15/20 14:00 89 15 129/60 99 12/15/20 13:00 100 H 15 155/70 99 12/15/20 12:00 95 H 16 141/75 100 12/15/20 11:00 87 16 144/73 100 12/15/20 10:00 89 14 130/59 99 - Physical Examination HEENT: Positive: PERRL Neck: Positive: neck supple Cardiac: Positive: Reg Rate and Rhythm Lungs: Positive: clear to auscultation Neuro: Positive: Grossly Intact Skin: Positive: Clear Extremities: Absent: edema - Labs and Meds Cardiac Enzymes 12/16/20 Range/Units 04:42 AST 58 H (5-40) units/L CBC 12/16/20 Range/Units 04:42 WBC 14.4 H (4.5-11.0) K/mm3 RBC 3.24 L (3.65-5.03) M/mm3 Hgb 8.3 L (11.8-15.2) gm/dl Hct 26.7 L (35.5-45.6) % Plt Count 61 L (140-440) K/mm3 Lymph # (Auto) 0.6 L (1.2-5.4) K/mm3 [place] # (Auto) 1.8 H (0.0-0.8) K/mm3 Eos # (Auto) 0.2 (0.0-0.4) K/mm3 Baso # (Auto) 0.1 (0.0-0.1) K/mm3 Comprehensive Metabolic Panel 12/16/20 Range/Units 04:42 Sodium 138 (137-145) mmol/L Potassium 3.9 (3.6-5.0) mmol/L Chloride 106.9 (98-107) mmol/L Carbon Dioxide 22 (22-30) mmol/L BUN 12 (9-20) mg/dL Creatinine 0.8 (0.8-1.3) mg/dL Glucose 90 (75-100) mg/dL Calcium 8.1 L (8.4-10.2) mg/dL AST 58 H (5-40) units/L ALT 20 (7-56) units/L Alkaline Phosphatase 75 (35-129) units/L Total Protein 5.2 L (6.3-8.2) g/dL Albumin 2.7 L (3.9-5) g/dL
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
[2020-12-16] MEDS: PROPRANOLOL 10 MG TAB PO SCH ×2 (12:32→22:06)
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
[2020-12-17] MEDS: ACETAMINOPHEN 325 MG TAB PO PRN (00:30)
[2020-12-17] MEDS: metroNIDAZOLE/NS 500 MG/100 ML 500 MG/100 ML BAG IV SCH ×3 (02:50→21:08)
[2020-12-17] MEDS: MORPHINE 2 MG/1 ML INJ IV PRN ×2 (02:55→09:57)
[2020-12-17 07:29] LABS: Basophils # (Auto) 0.1 K/mm3 (0.0-0.1); Basophils % (Auto) 0.7 % (0.0-1.8); Eosinophils # (Auto) 0.3 K/mm3 (0.0-0.4); Eosinophils % (Auto) 2.2 % (0.0-4.3); Hematocrit 23.7 % (35.5-45.6); Hemoglobin 7.5 gm/dl (11.8-15.2); Lymphocytes # (Auto) 0.9 K/mm3 (1.2-5.4); Lymphocytes % (Auto) 6.8 % (13.4-35.0); Mean Corpuscular HGB Conc 32 % (32-34); Mean Corpuscular Volume 82 fl (84-94); Monocytes # (Auto) 1.8 K/mm3 (0.0-0.8); Monocytes % (Auto) 14.3 % (0.0-7.3); Red Blood Count 2.88 M/mm3 (3.65-5.03)
[2020-12-17 07:38] LABS: INR 1.96 (0.87-1.13)
[2020-12-17 07:42] LABS: Alanine Aminotransferase 19 units/L (7-56); Albumin 2.1 g/dL (3.9-5); BUN/Creatinine Ratio 15; Blood Urea Nitrogen 17 mg/dL (9-20); Calcium 7.2 mg/dL (8.4-10.2); Hemolysis Index 3
[2020-12-17 08:10] LABS: Platelet Count 80 K/mm3 (140-440)
[2020-12-17] MEDS: PROPRANOLOL 10 MG TAB PO SCH ×2 (09:57→21:55)
[2020-12-17] MEDS: PANTOPRAZOLE 40 MG INJ IV SCH (09:57)
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
--- NOTE | 2020-12-17 12:33 | Progress Note ---
Assessment and Plan Acute Cholecystitis: Awaiting surgery Prior h/o CAD s/p PCI Recommendations: Reasonable to proceed with surgery from cardiac perspective. He will be at moderate risk for magdy-operative cardiac complications. Subjective Date of service: 12/17/20 Principal diagnosis: Acute cholecystitis Interval history: No acute cardiac events Objective Vital Signs Temp Pulse Resp Resp BP Pulse Ox 12/17/20 11:27 98.8 F 68 18 109/49 97 12/17/20 11:25 98 12/17/20 11:22 17 12/17/20 09:57 79 116/58 12/17/20 07:57 98.1 F 78 18 128/59 96 12/17/20 05:49 98.5 F 79 18 116/58 96 12/17/20 03:25 18 12/17/20 02:55 21 12/17/20 01:30 20 12/17/20 00:30 21 12/17/20 00:16 100.2 F H 82 18 132/66 90 12/16/20 22:06 78 12/16/20 22:00 96 12/16/20 20:34 98.8 F 78 18 125/64 91 12/16/20 15:59 99.0 F 81 20 122/69 90 - Physical Examination HEENT: Positive: PERRL Neck: Positive: neck supple Cardiac: Positive: Reg Rate and Rhythm Lungs: Positive: clear to auscultation Neuro: Positive: Grossly Intact Abdomen: Positive: Soft Skin: Positive: Clear Extremities: Absent: edema - Labs and Meds Cardiac Enzymes 12/17/20 Range/Units 07:01 AST 41 H (5-40) units/L Coagulation 12/17/20 Range/Units 07:01 PT 22.7 H (12.2-14.9) Sec. INR 1.96 H (0.87-1.13) CBC 12/17/20 Range/Units 07:01 WBC 12.6 H (4.5-11.0) K/mm3 RBC 2.88 L (3.65-5.03) M/mm3 Hgb 7.5 L (11.8-15.2) gm/dl Hct 23.7 L (35.5-45.6) % Plt Count 80 L (140-440) K/mm3 Lymph # (Auto) 0.9 L (1.2-5.4) K/mm3 [place] # (Auto) 1.8 H (0.0-0.8) K/mm3 Eos # (Auto) 0.3 (0.0-0.4) K/mm3 Baso # (Auto) 0.1 (0.0-0.1) K/mm3 Comprehensive Metabolic Panel 12/17/20 Range/Units 07:01 Sodium 134 L (137-145) mmol/L Potassium 3.5 L (3.6-5.0) mmol/L Chloride 106.8 (98-107) mmol/L Carbon Dioxide 20 L (22-30) mmol/L BUN 17 (9-20) mg/dL Creatinine 1.1 (0.8-1.3) mg/dL Glucose 114 H (75-100) mg/dL Calcium 7.2 L (8.4-10.2) mg/dL AST 41 H (5-40) units/L ALT 19 (7-56) units/L Alkaline Phosphatase 77 (35-129) units/L Total Protein 5.0 L (6.3-8.2) g/dL Albumin 2.1 L (3.9-5) g/dL
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
[2020-12-17] MEDS: D5W/0.9% NACL 1,000 ML IV SCH (14:53)
[2020-12-17] MEDS ORDERED: SODIUM CHLORIDE 0.9% 500 ML 500 ML IV NR ×2 (16:42→19:22)
[2020-12-18] MEDS: ACETAMINOPHEN 325 MG TAB PO PRN
[2020-12-18] MEDS: HYDROmorphone 1 MG/1 ML INJ IV PRN ×3 (00:02→16:07)
[2020-12-18] MEDS: metroNIDAZOLE/NS 500 MG/100 ML 500 MG/100 ML BAG IV SCH ×3 (05:34→18:22)
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
--- NOTE | 2020-12-18 09:22 | Magnetic Resonance Report ---
MR ABDOMEN MRCP INDICATION / CLINICAL INFORMATION: dilated common bile duct, rt upper abd. pain. TECHNIQUE: Multiplanar, multisequence series were obtained through the abdomen. Coronal thin slab and radial MRC P images. COMPARISON: Ultrasound right upper quadrant 12/15/2020. CT abdomen pelvis with contrast 12/14/2020. FINDINGS: LIVER: The liver is shrunken and cirrhotic but no discrete liver mass is detected. GALLBLADDER: The gallbladder is moderately dilated and contains multiple small stones. The gallbladde r wall is thickened up to 5 mm. BILE DUCTS: The MRCP images are limited secondary to excessive breathing motion artifact. The common bile duct measures 5-6 mm on MRCP. No convincing choledocholithiasis is detected. Normal pancreatic d uct. PANCREAS: No significant abnormality. SPLEEN: Mild splenomegaly measures 14.4 cm. ADRENALS: No significant abnormality. RIGHT KIDNEY AND URETER: No significant abnormality. LEFT KIDNEY AND URETER: No significant abnormality. STOMACH AND VISUALIZED BOWEL: No significant abnormality. PERITONEUM: There is small perihepatic and perisplenic ascites. No free air. No fluid collection. LYMPH NODES: No significant adenopathy. AORTA and ARTERIES: No significant abnormality. IVC and VEINS: The IVC and hepatic veins are patent. Large splenic vein varicosities are noted. Dual IVC is also noted partially imaged. ADDITIONAL FINDINGS: Small bilateral pleural effusions, right greater than left. SKELETAL SYSTEM: No significant abnormality. IMPRESSION: MRI also demonstrates a dilated gallbladder containing stones and wall thickening concerning for acu te cholecystitis. The MRCP images are severely limited but there is no convincing evidence for choled ocholithiasis. The CBD measures 5-6 mm in diameter. Mild splenomegaly. Trace to small ascites. Large splenic vein varicosities. Small bilateral pleural effusions. Signer Name: Compa Day Jr, MD Signed: 12/18/2020 9:18 AM Workstation Name: [id number]
[2020-12-18] MEDS: PANTOPRAZOLE 40 MG INJ IV SCH (09:27)
--- NOTE | 2020-12-18 09:42 | Progress Note ---
Assessment and Plan - Patient Problems (1) Encounter for preoperative assessment Current Visit: Yes Status: Acute Plan to address problem: 55-year-old man who is awaiting urgent surgery for acute cholecystitis. He reports a history of coronary artery disease, previous coronary stenting about 10 years ago, with no consistent cardiac follow-up. There are no current or recent cardiac complaints. Recommendations: Preop EKG is a normal sinus rhythm with no acute ST or T wave abnormalities, essentially normal ECG. Perioperative cardiac risk is moderate. Recommend telemetry monitoring and daily twelve-lead EKG for 2 days post surgery. We will continue to follow patient with you. Subjective Date of service: 12/18/20 Principal diagnosis: Acute cholecystitis Interval history: Patient is status post MRCP procedure, no chest pain, no shortness of breath, no cardiac complaints. Objective Vital Signs Temp Pulse Resp Resp BP Pulse Ox 12/18/20 07:07 98.3 F 72 16 133/62 96 12/18/20 05:59 98.0 F 65 18 122/57 96 12/18/20 01:43 98.6 F 70 20 106/58 98 12/18/20 00:45 98.3 F 70 20 123/58 97 12/18/20 00:09 99.5 F 72 20 118/56 97 12/17/20 23:43 99.8 F H 70 20 118/58 98 12/17/20 22:00 17 98 12/17/20 19:42 75 18 115/51 96 12/17/20 14:54 97.3 F L 74 16 134/62 97 12/17/20 11:27 98.8 F 68 18 109/49 97 12/17/20 11:25 98 12/17/20 11:22 17 12/17/20 09:57 79 116/58 - Physical Examination General: No Apparent Distress HEENT: Positive: PERRL Neck: Positive: neck supple Cardiac: Positive: Reg Rate and Rhythm Lungs: Positive: Decreased Breath Sounds Neuro: Positive: Grossly Intact Abdomen: Positive: Soft Skin: Positive: Clear Extremities: Absent: edema
[2020-12-18] MEDS ORDERED: SODIUM CHLORIDE 0.9% 500 ML 500 ML IV SCH (10:00)
--- NOTE | 2020-12-18 10:29 | Electrocardiograph Report ---
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
[2020-12-18] MEDS: PROPRANOLOL 10 MG TAB PO SCH (10:49)
[2020-12-18] MEDS: HYPROMELLOSE 0.5% OPHTH SOLN 15 ML OU PRN (12:51)
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
[2020-12-18] MEDS: D5W/0.9% NACL 1,000 ML IV SCH (16:07)
[2020-12-19] MEDS: PROPRANOLOL 10 MG TAB PO SCH ×2 (00:03→14:39)
[2020-12-19] MEDS: metroNIDAZOLE/NS 500 MG/100 ML 500 MG/100 ML BAG IV SCH ×3 (03:09→18:28)
[2020-12-19] MEDS: MORPHINE 2 MG/1 ML INJ IV PRN ×2 (03:18→17:26)
[2020-12-19 06:14] LABS: Hematocrit 23.9 % (35.5-45.6); Hemoglobin 7.7 gm/dl (11.8-15.2); Mean Corpuscular HGB Conc 32 % (32-34); Mean Corpuscular Volume 83 fl (84-94); Red Blood Count 2.87 M/mm3 (3.65-5.03)
[2020-12-19 06:18] LABS: Platelet Count 98 K/mm3 (140-440); Red Cell Distribution Width 21.4 % (13.2-15.2)
[2020-12-19 06:39] LABS: Alanine Aminotransferase 18 units/L (7-56); Albumin 2.4 g/dL (3.9-5); BUN/Creatinine Ratio 14; Blood Urea Nitrogen 11 mg/dL (9-20); Calcium 7.4 mg/dL (8.4-10.2); Hemolysis Index 3
--- NOTE | 2020-12-19 08:52 | Progress Note ---
Assessment and Plan Acute cholecystitis History of coronary artery disease no consistent cardiac follow-up. Recommendations: Perioperative cardiac risk is moderate. Telemetry monitoring and daily twelve-lead EKG for 2 days post surgery. Subjective Date of service: 12/19/20 Principal diagnosis: Acute cholecystitis Interval history: No cardiac events reported. Awaits surgery. Objective Vital Signs Temp Pulse Resp Resp BP BP Pulse Ox 12/19/20 07:22 98.9 F 73 16 119/62 98 12/19/20 05:58 99.0 F 72 20 120/60 100 12/19/20 03:48 17 12/19/20 03:21 99.6 F 88 16 123/54 99 12/19/20 03:18 16 12/19/20 00:03 74 120/64 12/18/20 23:23 98.3 F 73 20 129/67 100 12/18/20 22:00 18 17 100 12/18/20 19:54 98.3 F 63 20 110/51 100 12/18/20 16:12 98.2 F 67 16 104/42 99 12/18/20 11:16 98.3 F 76 16 129/62 99 12/18/20 10:49 72 12/18/20 10:19 18 98 - Physical Examination General: No Apparent Distress HEENT: Positive: PERRL Neck: Positive: neck supple Cardiac: Positive: Reg Rate and Rhythm Neuro: Positive: Grossly Intact Abdomen: Positive: Soft Skin: Positive: Clear Extremities: Absent: edema - Labs and Meds Cardiac Enzymes 12/19/20 Range/Units 05:55 AST 45 H (5-40) units/L CBC 12/19/20 Range/Units 05:55 WBC 6.8 (4.5-11.0) K/mm3 RBC 2.87 L (3.65-5.03) M/mm3 Hgb 7.7 L (11.8-15.2) gm/dl Hct 23.9 L (35.5-45.6) % Plt Count 98 L (140-440) K/mm3 Comprehensive Metabolic Panel 12/19/20 Range/Units 05:55 Sodium 139 (137-145) mmol/L Potassium 3.4 L (3.6-5.0) mmol/L Chloride 106.9 (98-107) mmol/L Carbon Dioxide 24 (22-30) mmol/L BUN 11 (9-20) mg/dL Creatinine 0.8 (0.8-1.3) mg/dL Glucose 104 H (75-100) mg/dL Calcium 7.4 L (8.4-10.2) mg/dL AST 45 H (5-40) units/L ALT 18 (7-56) units/L Alkaline Phosphatase 101 (35-129) units/L Total Protein 4.6 L (6.3-8.2) g/dL Albumin 2.4 L (3.9-5) g/dL
[2020-12-19] MEDS ORDERED: LACTATED RINGERS 1,000 ML IV SCH ×2 (09:45→10:15)
[2020-12-19] MEDS ORDERED: LIDOCAINE (1%) 10 MG/1 ML VIAL 20 ML MDV ONE (09:56)
[2020-12-19] MEDS ORDERED: BUPIVACAINE/PF (0.5%) 5 MG/1 ML 30 ML VIAL INFILTRATI ONE ×2 (09:56→13:07)
[2020-12-19] MEDS ORDERED: SODIUM CHLORIDE 0.9% 1000 ML 1,000 ML IV SCH (10:00)
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
[2020-12-19] MEDS ORDERED: HYDROmorphone 1 MG/1 ML INJ IV PRN (10:09)
[2020-12-19] MEDS ORDERED: ONDANSETRON 4 MG/2 ML INJ IV PRN (10:09)
[2020-12-19] MEDS ORDERED: DEXTROSE 50% IN WATER (25GM) 50 ML SYRINGE IV NR (10:10)
[2020-12-19] MEDS ORDERED: SODIUM CHLORIDE 0.9% 1000 ML 1,000 ML ONE (10:11)
[2020-12-19] MEDS ORDERED: propofoL 200 MG/20 ML VIAL IV ONE (10:13)
[2020-12-19] MEDS ORDERED: fentaNYL 100 MCG/2 ML INJ ONE (10:13)
[2020-12-19] MEDS ORDERED: LIDOCAINE PF 100 MG/5 ML (CARDIAC SYRINGE) IV ONE (10:15)
[2020-12-19] MEDS ORDERED: dexAMETHasone 20 MG/5 ML VIAL ONE (10:16)
--- NOTE | 2020-12-19 10:18 | Anesthesia Day of Surgery ---
Anesthesia Day of Surgery - Day of Surgery Patient Examined: Yes Patient H&P Reviewed: Yes Patient is NPO: Yes Beta Blockers: Yes Cardiac Clearance: Yes
[2020-12-19] MEDS ORDERED: PHENYLEPHRINE/NS 1,000 MCG/10 ML SYRINGE (OR USE) IV ONE (11:30)
[2020-12-19] MEDS ORDERED: GLYCOPYRROLATE 0.4 MG/2 ML INJ ONE (11:30)
[2020-12-19] MEDS ORDERED: ROCURONIUM 50 MG/5 ML INJ IV ONE (11:30)
[2020-12-19] MEDS ORDERED: ONDANSETRON 4 MG/2 ML INJ ONE (11:30)
[2020-12-19] MEDS ORDERED: NEOSTIGMINE 10MG/10 ML INJ MDV ONE (11:30)
[2020-12-19] MEDS ORDERED: ePHEDrine SULFATE 50 MG/1 ML INJ ONE (11:39)
[2020-12-19] MEDS ORDERED: LIDOCAINE (1%) 10 MG/1 ML VIAL 20 ML MDV INFILTRATI ONE (13:07)
[2020-12-19] MEDS ORDERED: SODIUM CHLORIDE 0.9% IRRIG SOLN 2000 ML IR ONE (13:08)
[2020-12-19] MEDS ORDERED: SODIUM CHLORIDE 0.9% IRR 1,500 ML BOTTLE IR ONE (13:08)
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
[2020-12-19] MEDS: PANTOPRAZOLE 40 MG INJ IV SCH (14:39)
--- NOTE | 2020-12-19 15:06 | Post Operative Note ---
Pre-op diagnosis: acute calculus cholecystitis, cirrhosis Post-op diagnosis: same Findings: 1. Distended gallbladder with small stones, thickened wall 2. Cirrhotic liver Procedure: laparoscopic cholecystectomy Anesthesia: FENGA, local Surgeon: ABIEL PALAFOX Fire Extinguisher Technician: RUDDY CASTILLO Estimated blood loss: other (100-150cc) Pathology: list (gallbladder) Specimen disposition: to lab Condition: stable Disposition: PACU
[2020-12-19] MEDS: D5W/0.9% NACL 1,000 ML IV SCH (17:26)
[2020-12-20] MEDS: MORPHINE 2 MG/1 ML INJ IV PRN ×3 (00:37→22:15)
[2020-12-20] MEDS: PROPRANOLOL 10 MG TAB PO SCH ×3 (00:41→22:13)
[2020-12-20] MEDS: oxyCODONE 5 MG TAB PO PRN (03:12)
[2020-12-20] MEDS: metroNIDAZOLE/NS 500 MG/100 ML 500 MG/100 ML BAG IV SCH ×2 (03:17→12:38)
[2020-12-20 05:05] LABS: Hematocrit 26.9 % (35.5-45.6); Hemoglobin 8.7 gm/dl (11.8-15.2); Mean Corpuscular HGB Conc 33 % (32-34); Mean Corpuscular Volume 83 fl (84-94); Platelet Count 152 K/mm3 (140-440); Red Blood Count 3.25 M/mm3 (3.65-5.03)
[2020-12-20 05:06] LABS: Red Cell Distribution Width 21.4 % (13.2-15.2)
[2020-12-20 05:33] LABS: Alanine Aminotransferase 21 units/L (7-56); Albumin 2.5 g/dL (3.9-5); BUN/Creatinine Ratio 19; Blood Urea Nitrogen 15 mg/dL (9-20); Calcium 7.8 mg/dL (8.4-10.2); Hemolysis Index 5
--- NOTE | 2020-12-20 09:08 | Progress Note ---
Assessment and Plan Acute cholecystitis s/p laparoscopic cholecystectomy History of coronary artery disease no consistent cardiac follow-up. Recommendations: Routine post-op management. Telemetry monitoring and twelve-lead EKG for 2 days post surgery. Subjective Date of service: 12/20/20 Principal diagnosis: Acute cholecystitis Interval history: Patient is 1 day post laparoscopic cholecystectomy. Complains of abdominal pain. Denies chest pain. Day 1 post op ECG is normal sinus rhythm. Objective Vital Signs Temp Pulse Resp BP Pulse Ox 12/20/20 07:42 98.7 F 82 20 139/70 96 12/20/20 06:36 17 12/20/20 06:07 17 12/20/20 05:00 98.6 F 79 18 131/59 99 12/20/20 04:12 17 12/20/20 03:12 17 12/20/20 01:07 17 12/20/20 00:41 78 124/62 12/20/20 00:37 17 12/20/20 00:11 98.2 F 76 18 124/61 96 12/19/20 22:00 97 12/19/20 19:18 98.2 F 71 18 122/58 99 12/19/20 16:20 98.9 F 65 18 120/52 97 12/19/20 15:33 98.4 F 67 22 118/58 98 12/19/20 15:18 67 20 116/55 97 12/19/20 15:13 71 22 114/53 96 12/19/20 15:08 74 20 114/50 96 12/19/20 15:03 98.5 F 77 17 114/50 95 12/19/20 09:45 100.1 F H 12/19/20 09:38 100.1 F H 70 16 129/67 100 - Physical Examination General: No Apparent Distress HEENT: Positive: PERRL Neck: Positive: neck supple Cardiac: Positive: Reg Rate and Rhythm Lungs: Positive: Decreased Breath Sounds Neuro: Positive: Grossly Intact Extremities: Absent: edema - Labs and Meds Cardiac Enzymes 12/20/20 Range/Units 04:46 AST 62 H (5-40) units/L CBC 12/20/20 Range/Units 04:46 WBC 13.1 H (4.5-11.0) K/mm3 RBC 3.25 L (3.65-5.03) M/mm3 Hgb 8.7 L (11.8-15.2) gm/dl Hct 26.9 L (35.5-45.6) % Plt Count 152 (140-440) K/mm3 Comprehensive Metabolic Panel 12/20/20 Range/Units 04:46 Sodium 138 (137-145) mmol/L Potassium 3.9 (3.6-5.0) mmol/L Chloride 105.4 (98-107) mmol/L Carbon Dioxide 23 (22-30) mmol/L BUN 15 (9-20) mg/dL Creatinine 0.8 (0.8-1.3) mg/dL Glucose 173 H (75-100) mg/dL Calcium 7.8 L (8.4-10.2) mg/dL AST 62 H (5-40) units/L ALT 21 (7-56) units/L Alkaline Phosphatase 114 (35-129) units/L Total Protein 5.4 L (6.3-8.2) g/dL Albumin 2.5 L (3.9-5) g/dL
[2020-12-20] MEDS: PANTOPRAZOLE 40 MG INJ IV SCH (10:23)
[2020-12-20] MEDS: D5W/0.9% NACL 1,000 ML IV SCH (10:24)
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
--- NOTE | 2020-12-20 15:25 | Progress Note ---
Assessment and Plan 55-year-old male status post laparoscopic cholecystectomy, POD 1 1. acute cholecystitis 2. liver cirrhosis 3. encephalopathy 4. hx CAD Plan: 1. back down to CLD 2. antiemetics 3. gentle IVF hydration 4. stop abx 5. prn pain control 6. OOB/ambulate 7. EKG per cards 8. STAT ammonia level 9. Discussed outpatient GI/hepatology follow up with patient. He is currently uninsured. He will benefit from evaluation for liver transplantation. We will follow. Thank you for this consultation. Please call with any questions or concerns. Evaluation and treatment of this patient was during the time of the national and state emergency arising from COVID19 coronavirus pandemic. Treatment and procedures performed meet the current and available best practice and guidelines for patient during the COVID pandemic. Subjective Date of service: 12/20/20 Narrative: Patient seen and examined. He states he does not feel well. He states that he is not able to hold down any of the solid food he has eaten today. He states he feels like he needs to have a bowel movement. No fevers or chills. No chest pain or shortness of breath. Objective Vital Signs - 12hr 12/20/20 12/20/20 12/20/20 04:12 05:00 06:07 Temperature 98.6 F Pulse Rate 79 Respiratory 17 18 17 Rate Blood Pressure 131/59 O2 Sat by Pulse 99 Oximetry 12/20/20 12/20/20 12/20/20 06:36 07:42 10:23 Temperature 98.7 F Pulse Rate 82 82 Respiratory 17 20 Rate Blood Pressure 139/70 139/70 O2 Sat by Pulse 96 Oximetry 12/20/20 11:33 Temperature 99.0 F Pulse Rate 85 Respiratory 20 Rate Blood Pressure 162/67 O2 Sat by Pulse 99 Oximetry - General physical appearance Narrative Exam: Gen.: Awake, alert, oriented x2. No apparent distress ENT: Trachea midline. No lymphadenopathy. CV: S1, S2 present Respiratory: No audible wheezes Abdomen: Soft, nondistended, nontender. Ecchymosis of the epigastric region. Incisions are clean, dry, intact. No rebound, rigidity, guarding Extremities: Ecchymosis of bilateral upper extremities - Labs 12/20/20 04:46 12/20/20 04:46 Diabetes panel 12/20/20 Range/Units 04:46 Sodium 138 (137-145) mmol/L Potassium 3.9 (3.6-5.0) mmol/L Chloride 105.4 (98-107) mmol/L Carbon Dioxide 23 (22-30) mmol/L BUN 15 (9-20) mg/dL Creatinine 0.8 (0.8-1.3) mg/dL Glucose 173 H (75-100) mg/dL Calcium 7.8 L (8.4-10.2) mg/dL AST 62 H (5-40) units/L ALT 21 (7-56) units/L Alkaline Phosphatase 114 (35-129) units/L Total Protein 5.4 L (6.3-8.2) g/dL Albumin 2.5 L (3.9-5) g/dL Calcium panel 12/20/20 Range/Units 04:46 Calcium 7.8 L (8.4-10.2) mg/dL Albumin 2.5 L (3.9-5) g/dL Pituitary panel 12/20/20 Range/Units 04:46 Sodium 138 (137-145) mmol/L Potassium 3.9 (3.6-5.0) mmol/L Chloride 105.4 (98-107) mmol/L Carbon Dioxide 23 (22-30) mmol/L BUN 15 (9-20) mg/dL Creatinine 0.8 (0.8-1.3) mg/dL Glucose 173 H (75-100) mg/dL Calcium 7.8 L (8.4-10.2) mg/dL Adrenal panel 12/20/20 Range/Units 04:46 Sodium 138 (137-145) mmol/L Potassium 3.9 (3.6-5.0) mmol/L Chloride 105.4 (98-107) mmol/L Carbon Dioxide 23 (22-30) mmol/L BUN 15 (9-20) mg/dL Creatinine 0.8 (0.8-1.3) mg/dL Glucose 173 H (75-100) mg/dL Calcium 7.8 L (8.4-10.2) mg/dL Total Bilirubin 3.10 H (0.1-1.2) mg/dL AST 62 H (5-40) units/L ALT 21 (7-56) units/L Alkaline Phosphatase 114 (35-129) units/L Total Protein 5.4 L (6.3-8.2) g/dL Albumin 2.5 L (3.9-5) g/dL
[2020-12-20] MEDS: METOCLOPRAMIDE 10 MG/2 ML INJ IV SCH (17:33)
[2020-12-20] MEDS ORDERED: LACTULOSE 20 GM/30 ML ORAL LIQD PO ONE (20:00)
[2020-12-21] MEDS: MORPHINE 2 MG/1 ML INJ IV PRN (03:20)
[2020-12-21 06:32] LABS: Hematocrit 27.2 % (35.5-45.6); Hemoglobin 8.7 gm/dl (11.8-15.2); Mean Corpuscular HGB Conc 32 % (32-34); Mean Corpuscular Volume 84 fl (84-94); Platelet Count 186 K/mm3 (140-440); Red Blood Count 3.24 M/mm3 (3.65-5.03)
[2020-12-21 06:38] LABS: Red Cell Distribution Width 21.8 % (13.2-15.2)
[2020-12-21 06:54] LABS: Alanine Aminotransferase 32 units/L (7-56); Albumin 2.6 g/dL (3.9-5); BUN/Creatinine Ratio 16; Blood Urea Nitrogen 13 mg/dL (9-20); Calcium 7.9 mg/dL (8.4-10.2); Hemolysis Index 3
--- NOTE | 2020-12-21 09:59 | Operative Report ---
Operative Report Operative Report: Date: 12/19/20 Pre-op diagnosis: acute calculus cholecystitis, cirrhosis Post-op diagnosis: same Findings: 1. Distended gallbladder with small stones, thickened wall 2. Cirrhotic liver Procedure: laparoscopic cholecystectomy Anesthesia: JUDY local Surgeon: ABIEL PALAFOX Pomologist: RUDDY CASTILLO Estimated blood loss: other (100-150cc) Pathology: list (gallbladder) Specimen disposition: to lab Condition: stable Disposition: PACU HPI an indication: 55-year-old male who presented to the ER with complaints Procedure in detail: The patient was identified in the preoperative area and taken back to the operating room, placed on the operating room table in supine position. After anesthesia was induced, the abdomen was prepped and draped in usual sterile fashion and timeout was performed. Local anesthetic was infiltrated into all of the skin incision sites. Using an 11 blade, a supraumbilical incision was made through which a Veress needle was inserted. The position of the veress needle was confirmed with the saline drop test and the abdomen was then insufflated to 15 mmHg without incident. The veress needle was then removed and a 5 mm Optiview trocar placed through this incision. The abdomen was then inspected and there was no underlying injury to any of the abdominal contents. An additional 12 mm subxyphoid port, and 2, 5mm RUQ ports were then placed under direct visualization. The patient was then placed into reverse Trendelberg and tilted to the left. The gallbladder was obscured by omental adhesions to the anterior abdominal wall. This adhesions was taken down bluntly. The gallbladder was distended/fluid filled, thickened, inflamed. The liver appeared cirrhotic. The gallbladder was decompressed using a laparoscopic needle and 20cc syringe. Approximately 80cc of green bile was aspirated. The gallbladder fundus was grasped and retracted cephalad. There were dense adhesions from the gallbladder neck to the duodenum. These adhesions were carefully dissected bluntly but anatomy was obscured and so a dome down approach was adopted. The gallbladder was scored and dissected from the liver bed using hook electrocautery. Hemostasis was carefully ensured along the way. The liver bed was very friable due to the patient's history of cirrhosis. There were areas of bleeding which needed to be controlled with clips. Once the gallbladder was completely dissected from the liver bed we proceeded to dissect in the area of the infundibulum. The area of the infundibulum was densely adhered to the omentum and a meticulous dissection was performed in order to free this area. At this point it was evident that the only attachment to the gallbladder was a cystic duct. The cystic duct did appear mildly dilated. The cystic duct was also very short. Therefore it was decided to use 2 PDS Endoloops at the neck of the gallbladder at the junction between the gallbladder and the cystic duct. These were applied in the usual fashion and the gallbladder was transected just distal to the Endoloops using EndoShears. The gallbladder was placed into an Endo Catch bag and removed via the 12 mm port. Gallbladder was inspected on the back table and only 1 structure was seen entering the gallbladder which was the cystic duct lumen. There were multiple tiny black stones in the gallbladder. The total procedural time was increased due to the patient's underlying history of liver cirrhosis and the severe nature of cholecystitis. The gallbladder fossa was then inspected and there was no identifiable bleeding or bile leakage. Hemostasis was very carefully ensured. The patient was then placed into neutral position and Morison's pouch was irrigated and the irrigant returned clear. The 12 mm port fascia was closed with interrupted 0 Vicryl sutures using the Jeanmarie Farnsworth device. Belkis powder was sprayed onto the liver bed for additional hemostasis. The remaining ports were removed under direct visualization. Skin incisions were closed with 4-0 Monocryl subcuticular stitches and skin glue. All skin incisions were once again infiltrated with local anesthetic. At the end case all sponge, instrument, sharp counts were correct 2. The patient was awoken from anesthesia, extubated, and taken to PACU in stable condition.
[2020-12-21] MEDS: METOCLOPRAMIDE 10 MG/2 ML INJ IV SCH ×3 (10:20→11:48)
[2020-12-21] MEDS: PROPRANOLOL 10 MG TAB PO SCH ×2 (10:20→21:56)
[2020-12-21] MEDS: LACTULOSE 20 GM/30 ML ORAL LIQD PO SCH ×3 (10:20→21:55)
[2020-12-21] MEDS: PANTOPRAZOLE 40 MG TAB PO SCH (10:20)
--- NOTE | 2020-12-21 11:01 | Electrocardiograph Report ---
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
--- NOTE | 2020-12-21 11:04 | Cat Scan Report ---
CT abdomen pelvis wo/w con INDICATION / CLINICAL INFORMATION: abdominal pain and increasing leukocytosis OMNI 300 100ML . TECHNIQUE: Axial CT images were obtained through the abdomen and pelvis prior to and after IV contras t. All CT scans at this location are performed using CT dose reduction for ALARA by means of automat ed exposure control. COMPARISON: MRI from 12/18/2020. Ultrasound from 12/15/2020. CT from 12/14/2020. FINDINGS: Small right and trace left pleural effusions are present. Right basilar airspace opacity likely refle cts atelectasis. There is also volume loss in the left lower lobe. Postsurgical changes of recent cholecystectomy. There is a relatively ill-defined collection within t he gallbladder fossa, measuring 3.6 cm in transverse dimension, 6.7 cm in greater caudal dimension an d 2.8 cm in AP dimension. No biliary dilatation. Nodular contour of the liver again seen, consistent with cirrhosis. No focal hepatic lesion. Pancreas and adrenal glands are unremarkable. Mild splenomeg lee ann again seen. Kidneys enhance symmetrically. No hydronephrosis. Bladder is partially decompressed, though grossly unremarkable. Prostate is not enlarged. No evidence of bowel obstruction or inflammation. Abdominal aorta is normal in caliber. Large varices are again seen. There is no free air. Moderate diffuse anasarca. No acute osseous findings. IMPRESSION: 1. Interval cholecystectomy with 6.7 cm fluid collection in the gallbladder fossa. This could reflect postoperative seroma, though biloma cannot be excluded. Abscess is thought less likely. No significa nt biliary dilatation. Recommend further evaluation with HIDA scan, as clinically indicated. 2. Findings of the third spacing of fluid with small right and trace left pleural effusions and diffu se anasarca. 3. Cirrhotic morphology of the liver with findings of portal hypertension. 4. Other stable chronic and incidental findings as above. Signer Name: Wiley Kapoor MD Signed: 12/21/2020 11:00 AM Workstation Name: [id number]
--- NOTE | 2020-12-21 11:12 | Progress Note ---
Assessment and Plan Acute cholecystitis s/p laparoscopic cholecystectomy History of coronary artery disease no consistent cardiac follow-up. Recommendations: Routine post-op management. Otherwise, conservative cardiac management. Subjective Date of service: 12/21/20 Principal diagnosis: Acute cholecystitis Interval history: Resting in bed. Denies chest pain. ECG done today is normal sinus rhythm. Objective Vital Signs Temp Pulse Resp BP Pulse Ox 12/21/20 10:20 84 140/71 12/21/20 07:27 99.0 F 84 16 140/71 100 12/21/20 04:21 99.1 F 82 18 146/66 97 12/21/20 00:37 98 12/21/20 00:00 98.6 F 75 18 134/68 97 12/20/20 22:13 79 116/61 12/20/20 20:00 98.8 F 79 18 116/61 97 12/20/20 16:23 98.9 F 81 20 133/67 95 12/20/20 11:33 99.0 F 85 20 162/67 99 - Physical Examination General: No Apparent Distress HEENT: Positive: PERRL Neck: Positive: neck supple Cardiac: Positive: Reg Rate and Rhythm Lungs: Positive: Decreased Breath Sounds Neuro: Positive: Grossly Intact Extremities: Absent: edema - Labs and Meds Cardiac Enzymes 12/21/20 Range/Units 06:06 AST 102 H (5-40) units/L CBC 12/21/20 Range/Units 06:06 WBC 16.9 H (4.5-11.0) K/mm3 RBC 3.24 L (3.65-5.03) M/mm3 Hgb 8.7 L (11.8-15.2) gm/dl Hct 27.2 L (35.5-45.6) % Plt Count 186 (140-440) K/mm3 Comprehensive Metabolic Panel 12/21/20 Range/Units 06:06 Sodium 140 (137-145) mmol/L Potassium 4.0 (3.6-5.0) mmol/L Chloride 106.5 (98-107) mmol/L Carbon Dioxide 23 (22-30) mmol/L BUN 13 (9-20) mg/dL Creatinine 0.8 (0.8-1.3) mg/dL Glucose 118 H (75-100) mg/dL Calcium 7.9 L (8.4-10.2) mg/dL AST 102 H (5-40) units/L ALT 32 (7-56) units/L Alkaline Phosphatase 120 (35-129) units/L Total Protein 5.5 L (6.3-8.2) g/dL Albumin 2.6 L (3.9-5) g/dL
--- NOTE | 2020-12-21 11:17 | Electrocardiograph Report ---
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
[2020-12-21] MEDS: metroNIDAZOLE/NS 500 MG/100 ML 500 MG/100 ML BAG IV SCH ×2 (13:01→22:23)
[2020-12-21] MEDS: ACETAMINOPHEN 325 MG TAB PO PRN (13:01)
[2020-12-21] MEDS: levoFLOXacin 500 MG TAB PO SCH (13:01)
--- NOTE | 2020-12-21 14:15 | Progress Note ---
Assessment and Plan 55-year-old male status post laparoscopic cholecystectomy, POD 2 1. acute cholecystitis 2. liver cirrhosis 3. encephalopathy 4. hx CAD Pt VSS. WBC trending up. CT A/P - 6cm fluid collection in gallbladder fossa - seroma vs biloma?? Plan: 1. FLD, NPO p MN for HIDA 2. antiemetics prn 3. gentle IVF hydration 4. restart empiric abx 5. prn pain control 6. OOB/ambulate 7. post op EKG per cards 8. HIDA scan ordered to r/o bile leak. Discussed with NM and will be performed first thing in am as radiotracer not available today. 9. IS/pulm toilet 10. PT consult/OOB D/W Dr. Jha Thank you for this consultation. Please call with any questions or concerns. Evaluation and treatment of this patient was during the time of the national and state emergency arising from COVID19 coronavirus pandemic. Treatment and procedures performed meet the current and available best practice and guidelines for patient during the COVID pandemic. Subjective Date of service: 12/21/20 Narrative: Pt seen and examined. No complaints. Per RN patient has been tolerating liquid diet. NO n/v. Objective Vital Signs - 12hr 12/21/20 12/21/20 12/21/20 04:21 07:27 10:00 Temperature 99.1 F 99.0 F Pulse Rate 82 84 Respiratory 18 16 Rate Blood Pressure 146/66 140/71 O2 Sat by Pulse 97 100 100 Oximetry 12/21/20 12/21/20 10:20 11:16 Temperature 100.3 F H Pulse Rate 84 79 Respiratory 18 Rate Blood Pressure 140/71 144/63 O2 Sat by Pulse 95 Oximetry - General physical appearance Narrative Exam: Gen.: Sleeping comfortably. No apparent distress ENT: Trachea midline. No lymphadenopathy. No scleral icterus or conjunctival pallor CV: S1, S2 present Respiratory: No audible wheezes Abdomen: Soft, nondistended - Labs 12/21/20 06:06 12/21/20 06:06 Diabetes panel 12/21/20 Range/Units 06:06 Sodium 140 (137-145) mmol/L Potassium 4.0 (3.6-5.0) mmol/L Chloride 106.5 (98-107) mmol/L Carbon Dioxide 23 (22-30) mmol/L BUN 13 (9-20) mg/dL Creatinine 0.8 (0.8-1.3) mg/dL Glucose 118 H (75-100) mg/dL Calcium 7.9 L (8.4-10.2) mg/dL AST 102 H (5-40) units/L ALT 32 (7-56) units/L Alkaline Phosphatase 120 (35-129) units/L Total Protein 5.5 L (6.3-8.2) g/dL Albumin 2.6 L (3.9-5) g/dL Calcium panel 12/21/20 Range/Units 06:06 Calcium 7.9 L (8.4-10.2) mg/dL Albumin 2.6 L (3.9-5) g/dL Pituitary panel 12/21/20 Range/Units 06:06 Sodium 140 (137-145) mmol/L Potassium 4.0 (3.6-5.0) mmol/L Chloride 106.5 (98-107) mmol/L Carbon Dioxide 23 (22-30) mmol/L BUN 13 (9-20) mg/dL Creatinine 0.8 (0.8-1.3) mg/dL Glucose 118 H (75-100) mg/dL Calcium 7.9 L (8.4-10.2) mg/dL Adrenal panel 12/21/20 Range/Units 06:06 Sodium 140 (137-145) mmol/L Potassium 4.0 (3.6-5.0) mmol/L Chloride 106.5 (98-107) mmol/L Carbon Dioxide 23 (22-30) mmol/L BUN 13 (9-20) mg/dL Creatinine 0.8 (0.8-1.3) mg/dL Glucose 118 H (75-100) mg/dL Calcium 7.9 L (8.4-10.2) mg/dL Total Bilirubin 3.10 H (0.1-1.2) mg/dL AST 102 H (5-40) units/L ALT 32 (7-56) units/L Alkaline Phosphatase 120 (35-129) units/L Total Protein 5.5 L (6.3-8.2) g/dL Albumin 2.6 L (3.9-5) g/dL
--- NOTE | 2020-12-21 14:16 | Gastroenterology Consultation ---
History of Present Illness - Reason for Consult Consult date: 12/21/20 Cirrhosis Requesting physician: PATTIE CADE - History of Present Illness 55-year-old gentleman recently diagnosed with cirrhosis back in July, does not appear to have followed up with us as an outpatient yet, presents with acute cholecystitis status post cholecystectomy GI is consulted for cirrhosis management Patient reports his arm is hurting otherwise he is starting to gradually improve after his surgery Denies jaundice Denies current encephalopathy or confusion Obtained/updated/reviewed patient's current medications Past History Past Medical History: CAD (With stents), diabetes, GERD, hypertension, other (Cirrhosis) Past Surgical History: No surgical history, PTCA Social history: lives with family, alcohol abuse Family history: no significant family history Medications and Allergies Allergies Allergy/AdvReac Type Severity Reaction Status Date / Time clindamycin Allergy Unknown Verified 07/18/20 14:46 doxycycline [From Vibramycin] Allergy Unknown Verified 07/18/20 14:46 Penicillins Allergy Unknown Verified 07/18/20 14:46 Home Medications Medication Instructions Recorded Confirmed Last Taken Type Pantoprazole [Protonix TAB] 40 mg PO BIDAC #60 tablet 07/21/20 12/16/20 Unknown Rx propranoloL [Inderal] 20 mg PO Q12HR #60 tablet 07/21/20 12/16/20 12/14/20 Rx Active Meds: Active Medications Acetaminophen (Acetaminophen 325 Mg Tab) 650 mg PO Q4H PRN PRN Reason: Pain MILD(1-3)/Fever >100.5/SAGASTUME Last Admin: 12/21/20 13:01 Dose: 650 mg Documented by: Al Hydrox/Mg Hydrox/Simethicone (Alum-Mag Hydroxide-Simethicone [phone]/5ml Oral Liqd 30 Ml) 30 ml PO Q4H PRN PRN Reason: Indigestion Artificial Tears (Hypromellose 0.5% Ophth Soln 15 Ml) 2 drops OU Q4H PRN PRN Reason: Dry Eye(s) Last Admin: 12/18/20 12:51 Dose: 2 drops Documented by: Dextrose/Sodium Chloride (D5ns) 1,000 mls @ 75 mls/hr IV DIRECT KIRT Last Admin: 12/20/20 10:24 Dose: 75 mls/hr Documented by: Metronidazole (Flagyl 500 Mg/100 Ml) 500 mg in 100 mls @ 100 mls/hr IV Q8H [facility]; Protocol Last Admin: 12/21/20 13:01 Dose: 100 mls/hr Documented by: Lactulose (Lactulose 20 Gm/30 Ml Oral Liqd) 20 gm PO Q8HR [facility] Last Admin: 12/21/20 13:01 Dose: 20 gm Documented by: Levofloxacin (Levofloxacin 500 Mg Tab) 500 mg PO Q24HR [facility]; Protocol Last Admin: 12/21/20 13:01 Dose: 500 mg Documented by: Magnesium Hydroxide (Magnesium Hydroxide (Mom) Oral Liqd Udc) 30 ml PO Q4H PRN PRN Reason: Constipation Morphine Sulfate (Morphine 2 Mg/1 Ml Inj) 2 mg IV Q4H PRN PRN Reason: Pain , Severe (7-10) Last Admin: 12/21/20 03:20 Dose: 2 mg Documented by: Naloxone HCl (Naloxone 0.4 Mg/1 Ml Inj) 0.1 mg IV Q2MIN PRN PRN Reason: Res Rate </= 8 or 02 SAT < 92% Ondansetron HCl (Ondansetron 4 Mg/2 Ml Inj) 4 mg IV Q8H PRN PRN Reason: Nausea And Vomiting Oxycodone HCl (Oxycodone 5 Mg Tab) 5 mg PO Q6H PRN PRN Reason: Pain, Moderate (4-6) Last Admin: 12/20/20 03:12 Dose: 5 mg Documented by: Pantoprazole Sodium (Pantoprazole 40 Mg Tab) 40 mg PO QDAC [facility] Last Admin: 12/21/20 10:20 Dose: 40 mg Documented by: Propranolol HCl (Propranolol 10 Mg Tab) 20 mg PO Q12HR [facility] Last Admin: 12/21/20 10:20 Dose: 20 mg Documented by: Sodium Chloride (Sodium Chloride 0.9% 10 Ml Flush Syringe) 10 ml IV BID [facility] Last Admin: 12/21/20 10:21 Dose: 10 ml Documented by: Review of Systems - Review of Systems All systems: negative (10 Systems reviewed and negative except as mentioned above in the history of present illness) Exam - Constitutional Vital Signs: Temp Pulse Resp BP Pulse Ox 100.3 F H 79 18 144/63 95 12/21/20 11:16 12/21/20 11:16 12/21/20 11:16 12/21/20 11:16 12/21/20 11:16 General appearance: no acute distress - EENT Eyes: EOM intact - Neck Neck: supple - Respiratory Respiratory effort: normal - Cardiovascular Rhythm: regular - Gastrointestinal General gastrointestinal: Present: soft, tender - Integumentary Integumentary: Present: dry - Musculoskeletal Musculoskeletal: normal - Neurologic Neurological: alert and oriented x3 - Psychiatric Psychiatric: appropriate mood/affect - Labs CBC & Chem 7: 12/21/20 06:06 12/21/20 06:06 Lab Results: Laboratory Results - last 24 hr 12/20/20 12/20/20 12/20/20 15:42 16:26 20:40 WBC RBC Hgb Hct MCV MCH MCHC RDW Plt Count Sodium Potassium Chloride Carbon Dioxide Anion Gap BUN Creatinine Estimated GFR BUN/Creatinine Ratio Glucose POC Glucose 203 H 144 H Calcium Total Bilirubin AST ALT Alkaline Phosphatase Ammonia 87.0 H Total Protein Albumin Albumin/Globulin Ratio Lipase 12/21/20 12/21/20 12/21/20 06:06 06:06 06:06 WBC 16.9 H RBC 3.24 L Hgb 8.7 L Hct 27.2 L MCV 84 MCH 27 L MCHC 32 RDW 21.8 H Plt Count 186 Sodium 140 Potassium 4.0 Chloride 106.5 Carbon Dioxide 23 Anion Gap 15 BUN 13 Creatinine 0.8 Estimated GFR > 60 BUN/Creatinine Ratio 16 Glucose 118 H POC Glucose Calcium 7.9 L Total Bilirubin 3.10 H AST 102 H ALT 32 Alkaline Phosphatase 120 Ammonia Total Protein 5.5 L Albumin 2.6 L Albumin/Globulin Ratio 0.9 Lipase 37 12/21/20 12/21/20 07:26 11:14 WBC RBC Hgb Hct MCV MCH MCHC RDW Plt Count Sodium Potassium Chloride Carbon Dioxide Anion Gap BUN Creatinine Estimated GFR BUN/Creatinine Ratio Glucose POC Glucose 140 H 152 H Calcium Total Bilirubin AST ALT Alkaline Phosphatase Ammonia Total Protein Albumin Albumin/Globulin Ratio Lipase Assessment and Plan Cirrhosis -patient has not had full outpatient evaluation to rule out other underlying etiologies, however given normal transaminases we do not need to perform the work-up here in the hospital and can be done when he follows up with us as an outpatient Regarding chronic management: HCC -patient requires liver specific imaging every 6 months; no specific mass seen on recent CT with and without IV contrast Varices -patient with documented esophageal varices on recent EGD with Dr. Amin in July. No high risk stigmata. Ascites -low-sodium diet, no significant ascites on recent imaging Hepatic encephalopathy -patient had possible episode therefore recommend continue lactulose titrate to 3-4 soft formed bowel movements per day Elevated INR -giving patient vitamin K From GI standpoint nothing would prevent patient from being discharged he should follow-up with us closely as an outpatient Avoid all hepatotoxins especially alcohol Regarding pain management, given patient is not in acute liver failure recommend Tylenol over NSAIDs, patient may have up to 2,000 mg of acetaminophen total per day
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
[2020-12-21] MEDS: PHYTONADIONE 5 MG/0.5 ML *ORAL LIQUID PO SCH (17:51)
[2020-12-22] MEDS: D5W/0.9% NACL 1,000 ML IV SCH (00:53)
[2020-12-22 05:17] LABS: Alanine Aminotransferase 27 units/L (7-56); Albumin 2.2 g/dL (3.9-5); Blood Urea Nitrogen 10 mg/dL (9-20); Calcium 7.5 mg/dL (8.4-10.2); Hemolysis Index 1
[2020-12-22] MEDS: LACTULOSE 20 GM/30 ML ORAL LIQD PO SCH ×3 (05:17→21:01)
[2020-12-22 05:33] LABS: BUN/Creatinine Ratio 17
[2020-12-22 05:44] LABS: Hematocrit 22.1 % (35.5-45.6); Hemoglobin 7.1 gm/dl (11.8-15.2); Mean Corpuscular HGB Conc 32 % (32-34); Mean Corpuscular Volume 82 fl (84-94); Platelet Count 104 K/mm3 (140-440); Red Blood Count 2.68 M/mm3 (3.65-5.03)
[2020-12-22 05:48] LABS: Red Cell Distribution Width 21.9 % (13.2-15.2)
[2020-12-22] MEDS: metroNIDAZOLE/NS 500 MG/100 ML 500 MG/100 ML BAG IV SCH ×3 (06:24→21:00)
--- NOTE | 2020-12-22 08:32 | Event Note ---
Date: 12/22/20 Patient not in his bed when I came to round on him this morning LFTs improving GI will sign off he should follow-up with us as an outpatient, recommendations from yesterday remain unchanged
--- NOTE | 2020-12-22 09:03 | Progress Note ---
Assessment and Plan Acute cholecystitis s/p laparoscopic cholecystectomy Marked Anemia Thrombocytopenia History of coronary artery disease no consistent cardiac follow-up. Recommend: Conservative cardiac management. Subjective Date of service: 12/22/20 Principal diagnosis: Acute cholecystitis Interval history: No interval cardiac events reported. Labs today shows marked anemia, HCT 22.1 from 29.4 on presentation. Objective Vital Signs Temp Pulse Resp BP Pulse Ox 12/22/20 06:03 99.8 F H 73 18 118/52 95 12/21/20 23:54 99.1 F 68 18 134/59 99 12/21/20 22:00 17 99 12/21/20 21:56 77 122/60 12/21/20 19:44 98.8 F 68 18 113/52 100 12/21/20 14:36 77 137/63 95 12/21/20 14:01 17 12/21/20 11:16 100.3 F H 79 18 144/63 95 12/21/20 10:20 84 140/71 12/21/20 10:00 100 - Physical Examination General: No Apparent Distress HEENT: Positive: PERRL Neck: Positive: neck supple Cardiac: Positive: Reg Rate and Rhythm Neuro: Positive: Grossly Intact Extremities: Absent: edema - Labs and Meds Cardiac Enzymes 12/22/20 Range/Units 04:22 AST 76 H (5-40) units/L CBC 12/22/20 Range/Units 04:22 WBC 7.7 (4.5-11.0) K/mm3 RBC 2.68 L (3.65-5.03) M/mm3 Hgb 7.1 L (11.8-15.2) gm/dl Hct 22.1 L (35.5-45.6) % Plt Count 104 L (140-440) K/mm3 Comprehensive Metabolic Panel 12/22/20 Range/Units 04:22 Sodium 139 (137-145) mmol/L Potassium 3.4 L (3.6-5.0) mmol/L Chloride 106.6 (98-107) mmol/L Carbon Dioxide 25 (22-30) mmol/L BUN 10 (9-20) mg/dL Creatinine 0.6 L (0.8-1.3) mg/dL Glucose 122 H (75-100) mg/dL Calcium 7.5 L (8.4-10.2) mg/dL AST 76 H (5-40) units/L ALT 27 (7-56) units/L Alkaline Phosphatase 105 (35-129) units/L Total Protein 4.6 L (6.3-8.2) g/dL Albumin 2.2 L (3.9-5) g/dL
--- NOTE | 2020-12-22 09:35 | Nuclear Medicine Report ---
NUCLEAR MEDICINE HEPATOBILIARY SCAN INDICATION / CLINICAL INFORMATION: abd pain , s/p cholecystectomy, r/o biloma. TECHNIQUE: Radiotracer: Tc-99m mebrofenin (by IV): 5.5 mCi. COMPARISON: CT on 12/21/2020 FINDINGS: HEPATIC ACTIVITY: Normal. BILIARY ACTIVITY: Normal. GALLBLADDER ACTIVITY: No uptake in the gallbladder fossa. SMALL BOWEL ACTIVITY: Normal IMPRESSION: No appreciable biliary leak. Signer Name: Usama Chance MD Signed: 12/22/2020 9:30 AM Workstation Name: [id number]
[2020-12-22] MEDS: levoFLOXacin 500 MG TAB PO SCH (10:06)
[2020-12-22] MEDS ORDERED: SODIUM CHLORIDE 0.45% 1000 ML 1,000 ML IV SCH (11:00)
[2020-12-22] MEDS: PANTOPRAZOLE 40 MG TAB PO SCH (11:05)
[2020-12-22] MEDS: PROPRANOLOL 10 MG TAB PO SCH ×2 (11:06→21:03)
--- NOTE | 2020-12-22 11:46 | Progress Note ---
Assessment and Plan 55-year-old male status post laparoscopic cholecystectomy, POD 3 1. acute cholecystitis 2. liver cirrhosis 3. encephalopathy 4. hx CAD HIDA - normal exam, no bile leak. Plan: 1. Cardiac diet 2. antiemetics prn 3. gentle IVF hydration 4. continue abx - 7 days total 5. prn pain control 6. OOB/ambulate 7. IS/pulm toilet 8. OOB - PT on board 9. PPI, add carafate 10. Case management c/s for home PT, rolling walker Ok to dc from surgery standpoint once home PT set up. Thank you for this consultation. Please call with any questions or concerns. Evaluation and treatment of this patient was during the time of the national and state emergency arising from COVID19 coronavirus pandemic. Treatment and procedures performed meet the current and available best practice and guidelines for patient during the COVID pandemic. Subjective Date of service: 12/22/20 Narrative: Pt seen and examined. c/o sharp intermittent pain in RUQ, mild. No f/c. No n/v. Was NPO today for HIDA scan. Objective Vital Signs - 12hr 12/21/20 12/22/20 23:54 06:03 Temperature 99.1 F 99.8 F H Pulse Rate 68 73 Respiratory 18 18 Rate Blood Pressure 134/59 118/52 O2 Sat by Pulse 99 95 Oximetry - General physical appearance Narrative Exam: Gen: Awake and alert. Laying in bed. CV: S1, S2+ Resp: even and unlabored Abd: soft, ND, mild TTP in RUQ and inferior costal margin. Incisions c/d/i. Ecchymosis of epigastrum and RUQ (present before surgery) improving. No r/r/g Ext: no c/c/e - Labs 12/22/20 04:22 12/22/20 04:22 Diabetes panel 12/22/20 Range/Units 04:22 Sodium 139 (137-145) mmol/L Potassium 3.4 L (3.6-5.0) mmol/L Chloride 106.6 (98-107) mmol/L Carbon Dioxide 25 (22-30) mmol/L BUN 10 (9-20) mg/dL Creatinine 0.6 L (0.8-1.3) mg/dL Glucose 122 H (75-100) mg/dL Calcium 7.5 L (8.4-10.2) mg/dL AST 76 H (5-40) units/L ALT 27 (7-56) units/L Alkaline Phosphatase 105 (35-129) units/L Total Protein 4.6 L (6.3-8.2) g/dL Albumin 2.2 L (3.9-5) g/dL Calcium panel 12/22/20 Range/Units 04:22 Calcium 7.5 L (8.4-10.2) mg/dL Albumin 2.2 L (3.9-5) g/dL Pituitary panel 12/22/20 Range/Units 04:22 Sodium 139 (137-145) mmol/L Potassium 3.4 L (3.6-5.0) mmol/L Chloride 106.6 (98-107) mmol/L Carbon Dioxide 25 (22-30) mmol/L BUN 10 (9-20) mg/dL Creatinine 0.6 L (0.8-1.3) mg/dL Glucose 122 H (75-100) mg/dL Calcium 7.5 L (8.4-10.2) mg/dL Adrenal panel 12/22/20 Range/Units 04:22 Sodium 139 (137-145) mmol/L Potassium 3.4 L (3.6-5.0) mmol/L Chloride 106.6 (98-107) mmol/L Carbon Dioxide 25 (22-30) mmol/L BUN 10 (9-20) mg/dL Creatinine 0.6 L (0.8-1.3) mg/dL Glucose 122 H (75-100) mg/dL Calcium 7.5 L (8.4-10.2) mg/dL Total Bilirubin 2.80 H (0.1-1.2) mg/dL AST 76 H (5-40) units/L ALT 27 (7-56) units/L Alkaline Phosphatase 105 (35-129) units/L Total Protein 4.6 L (6.3-8.2) g/dL Albumin 2.2 L (3.9-5) g/dL
[2020-12-22] MEDS: SUCRALFATE 1 GM/10 ML ORAL LIQD PO SCH ×3 (12:54→21:01)
[2020-12-22] MEDS: oxyCODONE 5 MG TAB PO PRN ×2 (13:05→21:04)
--- NOTE | 2020-12-22 14:55 | Progress Note ---
History Interval history: Patient seen and examined, s/p cholecystectomy. Lethargic. Per nursing staff Hospitalist Physical - Physical exam Narrative exam: General appearance: Present: mild distress secondary abdominal pain, well- nourished, lethargic - EENT Eyes: PERRL, EOM intact ENT: hearing intact, clear oral mucosa Ears: bilateral: normal - Neck Neck: supple, normal ROM - Respiratory Respiratory effort: normal Respiratory: bilateral: CTA - Breasts Breasts: normal - Cardiovascular Rhythm: regular Heart Sounds: Present: S1 & S2. Absent: gallop, rub Extremities: pulses intact, No edema, normal color, Full ROM - Gastrointestinal General gastrointestinal: Present: soft, tender, non-distended, normal bowel sounds, other dressing in place - Genitourinary Male genitourinary: normal - Integumentary Integumentary: clear, warm, dry - Musculoskeletal Musculoskeletal: 1, strength equal bilaterally - Neurologic Neurologic: moves all extremities - Psychiatric Psychiatric: memory intact, appropriate mood/affect, intact judgment & insight - Constitutional Vitals: Temp Pulse Resp BP Pulse Ox 98.8 F 74 20 119/37 97 12/22/20 11:21 12/22/20 11:21 12/22/20 11:21 12/22/20 11:21 12/22/20 11:21 General appearance: Present: no acute distress, well-nourished Results - Labs CBC & Chem 7: 12/22/20 04:22 12/22/20 04:22 Labs: Laboratory Last Values WBC 7.7 K/mm3 (4.5-11.0) 12/22/20 04:22 RBC 2.68 M/mm3 (3.65-5.03) L 12/22/20 04:22 Hgb 7.1 gm/dl (11.8-15.2) L 12/22/20 04:22 Hct 22.1 % (35.5-45.6) L 12/22/20 04:22 MCV 82 fl (84-94) L 12/22/20 04:22 MCH 27 pg (28-32) L 12/22/20 04:22 MCHC 32 % (32-34) 12/22/20 04:22 RDW 21.9 % (13.2-15.2) H 12/22/20 04:22 Plt Count 104 K/mm3 (140-440) L 12/22/20 04:22 Lymph % (Auto) 6.8 % (13.4-35.0) L 12/17/20 07:01 [place] % (Auto) 14.3 % (0.0-7.3) H 12/17/20 07:01 Eos % (Auto) 2.2 % (0.0-4.3) 12/17/20 07:01 Baso % (Auto) 0.7 % (0.0-1.8) 12/17/20 07:01 Lymph # (Auto) 0.9 K/mm3 (1.2-5.4) L 12/17/20 07:01 [place] # (Auto) 1.8 K/mm3 (0.0-0.8) H 12/17/20 07:01 Eos # (Auto) 0.3 K/mm3 (0.0-0.4) 12/17/20 07:01 Baso # (Auto) 0.1 K/mm3 (0.0-0.1) 12/17/20 07:01 Seg Neutrophils % 76.0 % (40.0-70.0) H 12/17/20 07:01 Seg Neutrophils # 9.6 K/mm3 (1.8-7.7) H 12/17/20 07:01 PT 22.7 Sec. (12.2-14.9) H 12/17/20 07:01 INR 1.96 (0.87-1.13) H 12/17/20 07:01 APTT 35.9 Sec. (24.2-36.6) 12/14/20 23:57 Sodium 139 mmol/L (137-145) 12/22/20 04:22 Potassium 3.4 mmol/L (3.6-5.0) L 12/22/20 04:22 Chloride 106.6 mmol/L (98-107) 12/22/20 04:22 Carbon Dioxide 25 mmol/L (22-30) 12/22/20 04:22 Anion Gap 11 mmol/L 12/22/20 04:22 BUN 10 mg/dL (9-20) 12/22/20 04:22 Creatinine 0.6 mg/dL (0.8-1.3) L 12/22/20 04:22 Estimated GFR > 60 ml/min 12/22/20 04:22 BUN/Creatinine Ratio 17 % 12/22/20 04:22 Glucose 122 mg/dL (75-100) H 12/22/20 04:22 POC Glucose 95 mg/dL (70-105) 12/22/20 11:21 Calcium 7.5 mg/dL (8.4-10.2) L 12/22/20 04:22 Total Bilirubin 2.80 mg/dL (0.1-1.2) H 12/22/20 04:22 Direct Bilirubin 1.4 mg/dL (0-0.2) H 12/14/20 21:47 Indirect Bilirubin 2.9 mg/dL 12/14/20 21:47 AST 76 units/L (5-40) H 12/22/20 04:22 ALT 27 units/L (7-56) 12/22/20 04:22 Alkaline Phosphatase 105 units/L (35-129) 12/22/20 04:22 Ammonia 87.0 umol/L (25-60) H 12/20/20 15:42 Total Protein 4.6 g/dL (6.3-8.2) L 12/22/20 04:22 Albumin 2.2 g/dL (3.9-5) L 12/22/20 04:22 Albumin/Globulin Ratio 0.9 % 12/22/20 04:22 Lipase 37 units/L (13-60) 12/21/20 06:06 Urine Color Sara (Yellow) 12/15/20 02:26 Urine Turbidity Clear (Clear) 12/15/20 02:26 Urine pH 5.0 (5.0-7.0) 12/15/20 02:26 Ur Specific [place] 1.060 (1.003-1.030) H 12/15/20 02:26 Urine Protein <15 mg/dl mg/dL (Negative) 12/15/20 02:26 Urine Glucose (UA) Neg mg/dL (Negative) 12/15/20 02:26 Urine Ketones Neg mg/dL (Negative) 12/15/20 02:26 Urine Blood Neg (Negative) 12/15/20 02:26 Urine Nitrite Neg (Negative) 12/15/20 02:26 Urine Bilirubin Neg (Negative) 12/15/20 02:26 Urine Urobilinogen 4.0 mg/dL (<2.0) 12/15/20 02:26 Ur Leukocyte Esterase Neg (Negative) 12/15/20 02:26 Urine WBC (Auto) < 1.0 /HPF (0.0-6.0) 12/15/20 02:26 Urine RBC (Auto) 2.0 /HPF (0.0-6.0) 12/15/20 02:26 U Epithel Cells (Auto) < 1.0 /HPF (0-13.0) 12/15/20 02:26 Plasma/Serum Alcohol < 0.01 % (0-0.07) 12/14/20 21:47 Blood Type O POSITIVE 12/17/20 20:30 Antibody Screen Negative 12/17/20 20:30 Crossmatch See Detail 12/17/20 20:30 Vera/IV: Voiding Method Urinal Active Medications - Current Medications Current Medications: Generic Name Dose Route Start Last Admin Trade Name Freq PRN Reason Stop Dose Admin Acetaminophen 650 mg 12/15/20 04:34 12/21/20 13:01 Acetaminophen 325 Mg Tab PO 650 mg Q4H PRN Administration Pain MILD(1-3)/Fever >100.5/SAGASTUME Al Hydrox/Mg Hydrox/Simethicone 30 ml 12/15/20 04:34 Alum-Mag Hydroxide-Simethicone 430-137-52lv/5ml Oral Liqd 30 Ml PO Q4H PRN Indigestion Artificial Tears 2 drops 12/18/20 11:12 12/18/20 12:51 Hypromellose 0.5% Ophth Soln 15 Ml OU 2 drops Q4H PRN Administration Dry Eye(s) Metronidazole 500 mg in 100 mls @ 100 mls/hr 12/21/20 13:00 12/22/20 06:24 Flagyl 500 Mg/100 Ml IV 100 mls/hr Q8H KIRT Administration Protocol Sodium Chloride 1,000 mls @ 50 mls/hr 12/22/20 11:00 12/22/20 12:00 Nacl 0.45% 1000 Ml IV 50 mls/hr DIRECT KIRT Administration Lactulose 20 gm 12/21/20 09:00 12/22/20 05:17 Lactulose 20 Gm/30 Ml Oral Liqd PO Not Given Q8HR KIRT Levofloxacin 500 mg 12/21/20 13:00 12/22/20 10:06 Levofloxacin 500 Mg Tab PO 500 mg Q24HR KIRT Administration Protocol Magnesium Hydroxide 30 ml 12/15/20 04:34 Magnesium Hydroxide (Mom) Oral Liqd Udc PO Q4H PRN Constipation Morphine Sulfate 2 mg 12/15/20 04:34 12/21/20 03:20 Morphine 2 Mg/1 Ml Inj IV 2 mg Q4H PRN Administration Pain , Severe (7-10) Naloxone HCl 0.1 mg 12/15/20 04:34 Naloxone 0.4 Mg/1 Ml Inj IV Q2MIN PRN Res Rate </= 8 or 02 SAT < 92% Ondansetron HCl 4 mg 12/15/20 04:34 Ondansetron 4 Mg/2 Ml Inj IV Q8H PRN Nausea And Vomiting Oxycodone HCl 5 mg 12/19/20 16:00 12/22/20 13:05 Oxycodone 5 Mg Tab PO 5 mg Q6H PRN Administration Pain, Moderate (4-6) Pantoprazole Sodium 40 mg 12/21/20 07:30 12/21/20 10:20 Pantoprazole 40 Mg Tab PO 40 mg QDAC KIRT Administration Phytonadione 10 mg 12/21/20 15:00 12/21/20 17:51 Phytonadione 5 Mg/0.5 Ml *Oral Liquid* PO 12/23/20 10:01 10 mg DAILY KIRT Administration Propranolol HCl 20 mg 12/15/20 10:00 12/22/20 11:06 Propranolol 10 Mg Tab PO 20 mg Q12HR KIRT Administration Sodium Chloride 10 ml 12/15/20 10:00 12/21/20 22:00 Sodium Chloride 0.9% 10 Ml Flush Syringe IV 10 ml BID KIRT Administration Sucralfate 1 gm 12/22/20 12:00 Sucralfate 1 Gm/10 Ml Oral Liqd PO ACHS KIRT
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
[2020-12-22] MEDS: MORPHINE 2 MG/1 ML INJ IV PRN (18:48)
[2020-12-22] MEDS: HYPROMELLOSE 0.5% OPHTH SOLN 15 ML OU PRN (18:50)
[2020-12-22] MEDS: PHYTONADIONE 5 MG/0.5 ML *ORAL LIQUID PO SCH (20:57)
[2020-12-23] MEDS: metroNIDAZOLE/NS 500 MG/100 ML 500 MG/100 ML BAG IV SCH ×2 (05:07→12:26)
[2020-12-23] MEDS: LACTULOSE 20 GM/30 ML ORAL LIQD PO SCH ×2 (05:12→13:30)
[2020-12-23] MEDS: SUCRALFATE 1 GM/10 ML ORAL LIQD PO SCH ×2 (09:18→12:27)
[2020-12-23] MEDS: levoFLOXacin 500 MG TAB PO SCH (09:18)
[2020-12-23] MEDS: oxyCODONE 5 MG TAB PO PRN (09:18)
[2020-12-23] MEDS: PROPRANOLOL 10 MG TAB PO SCH (09:18)
[2020-12-23 10:05] LABS: Blood Urea Nitrogen 8 mg/dL (9-20); Calcium 7.3 mg/dL (8.4-10.2); Hemolysis Index 8
[2020-12-23 10:15] LABS: BUN/Creatinine Ratio 13
[2020-12-23 10:27] LABS: Hematocrit 23.3 % (35.5-45.6); Hemoglobin 7.6 gm/dl (11.8-15.2); Mean Corpuscular HGB Conc 33 % (32-34); Mean Corpuscular Volume 83 fl (84-94); Platelet Count 138 K/mm3 (140-440)
[2020-12-23 10:42] LABS: Red Cell Distribution Width 21.9 % (13.2-15.2)
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
[2020-12-23 12:14] LABS: Total Cells Counted 100
[2020-12-23 12:16] LABS: Platelet Estimate Consistent w Auto; Tear Drop Cells 1+
[2020-12-23 12:19] VITALS: BP 120/59
[2020-12-23] MEDS: PHYTONADIONE 5 MG/0.5 ML *ORAL LIQUID PO SCH (12:28)
[2020-12-23] MEDS: PANTOPRAZOLE 40 MG TAB PO SCH (13:55)
--- NOTE | 2020-12-23 15:06 | Progress Note ---
Assessment and Plan - Patient Problems (1) Encounter for preoperative assessment Current Visit: Yes Status: Acute Plan to address problem: Patient status post laparoscopic gallbladder removal, continue postoperative management. No cardiac complaints. Subjective Date of service: 12/23/20 Principal diagnosis: Acute cholecystitis Interval history: Patient is comfortable, no cardiac complaints reported. Objective Vital Signs Temp Pulse Resp BP BP Pulse Ox 12/23/20 12:18 98.6 F 70 18 120/59 95 12/23/20 10:00 20 100 12/23/20 09:18 18 12/23/20 07:31 99.5 F 77 18 126/62 95 12/22/20 22:51 17 96 12/22/20 21:03 86 126/55 12/22/20 16:12 98.7 F 86 20 126/55 98 - Physical Examination General: No Apparent Distress HEENT: Positive: PERRL Neck: Positive: neck supple Cardiac: Positive: Reg Rate and Rhythm Lungs: Positive: Decreased Breath Sounds Neuro: Positive: Grossly Intact Abdomen: Positive: Soft Skin: Positive: Clear Extremities: Absent: edema - Labs and Meds CBC 12/23/20 Range/Units 09:25 WBC 9.7 (4.5-11.0) K/mm3 RBC 2.80 L (3.65-5.03) M/mm3 Hgb 7.6 L (11.8-15.2) gm/dl Hct 23.3 L (35.5-45.6) % Plt Count 138 L (140-440) K/mm3 Comprehensive Metabolic Panel 12/23/20 Range/Units 09:25 Sodium 136 L (137-145) mmol/L Potassium 3.5 L (3.6-5.0) mmol/L Chloride 105.1 (98-107) mmol/L Carbon Dioxide 22 (22-30) mmol/L BUN 8 L (9-20) mg/dL Creatinine 0.6 L (0.8-1.3) mg/dL Glucose 126 H (75-100) mg/dL Calcium 7.3 L (8.4-10.2) mg/dL
== END 2020-12-23 16:39 | disposition home health service (06) | DRG 418 ==
LOC: ED 20:30 → 3A 12-15 02:48 → 3B-SURG 12-15 20:27 → OBSVTOIN 12-18 10:13
PROVIDERS: ADMIT Hospitalist; ATTEND Internal Medicine
PROC: 0FT44ZZ Resection of Gallbladder, Percutaneous Endoscopic Approach (ICD-10-PCS; principal; 2020-12-19)
DX: K81.0 Acute cholecystitis (principal); E72.20 Disorder of urea cycle metabolism, unspecified; G93.40 Encephalopathy, unspecified; K74.60 Unspecified cirrhosis of liver; D69.6 Thrombocytopenia, unspecified; E11.22 Type 2 diabetes mellitus with diabetic chronic kidney disease; I12.9 Hypertensive chronic kidney disease with stage 1 through stage 4 chronic kidney disease, or unspecified chronic kidney disease; N18.9 Chronic kidney disease, unspecified; K21.9 Gastro-esophageal reflux disease without esophagitis; K52.9 Noninfective gastroenteritis and colitis, unspecified; I25.10 Atherosclerotic heart disease of native coronary artery without angina pectoris; E87.6 Hypokalemia; D64.9 Anemia, unspecified; E11.9 Type 2 diabetes mellitus without complications; Z95.5 Presence of coronary angioplasty implant and graft; Z88.0 Allergy status to penicillin; Z88.1 Allergy status to other antibiotic agents; Z87.442 Personal history of urinary calculi; Z79.899 Other long term (current) drug therapy; Z79.891 Long term (current) use of opiate analgesic; Z79.01 Long term (current) use of anticoagulants; Z87.81 Personal history of (healed) traumatic fracture; E66.9 Obesity, unspecified; Z68.31 Body mass index [BMI] 31.0-31.9, adult
CPT/HCPCS: 36415; 74177; 74178; 74181; 76705; 78226; 80048; 80053; 80076; 80320; 81001; 82140; 82962; 83690; 85007; 85025; 85027; 85610; 85730; 86850; 86900; 86901; 86920; 88304; 93005; G0378; A4217; A9537; C9113; G0480; J1100; J1170; J1956; J2001; J2270; J2370; J2405; J2704; J2710; J2765; J3010; J3430; J7030; J7040; J7042; P9035; Q9967